=== PATIENT | male | born 1950 | race Caucasian/White ===

== ENCOUNTER 2017-10-31 16:00 | Outpatient (CLI) | payer MEDICARE, BC | END 2017-10-31 16:01 | disposition home or self-care (01) | LOC: BICRAD 16:00 | PROVIDERS: ATTEND Internal Medicine Gastroenterology | DX: K59.00 Constipation, unspecified (principal); K21.9 Gastro-esophageal reflux disease without esophagitis; R11.0 Nausea; M47.895 Other spondylosis, thoracolumbar region; Z96.643 Presence of artificial hip joint, bilateral | CPT/HCPCS: 74019 ==

== ENCOUNTER 2017-11-10 08:33 | Outpatient (CLI) | payer MEDICARE, BC ==
[2017-11-10] MEDS ORDERED: Iopamidol 370 76% 100 ML VIAL ONE (13:48)
== END 2017-11-10 08:34 | disposition home or self-care (01) ==
LOC: BICCT 08:33
PROVIDERS: ATTEND Physician Assistant Medical
DX: R11.0 Nausea (principal); K31.89 Other diseases of stomach and duodenum
CPT/HCPCS: 74177

== ENCOUNTER 2017-11-21 09:35 | Emergency (ER) | payer MEDICARE, BC ==
[2017-11-21] MEDS ORDERED: Ondansetron HCl/PF 4 MG/2 ML Vial ONE (09:44)
[2017-11-21 10:37] LABS: #Basophils 0.1 thou/uL (0.0-0.2); #Eosinphils 0.1 thou/uL (0.0-0.7); #Lymphocytes 1.3 thou/uL (1.20-3.40); #Monocytes 0.6 thou/uL (0.11-0.59); #Neutrophils 5.8 thou/uL (1.40-6.50); %Basophils 0.8 % (0.0-1.0); %Eosinophils 1.6 % (0.0-10.0); %Lymphocytes 16.1 % (21.0-51.0); %Monocytes 7.2 % (0.0-10.0); %Neutrophils 74.3 % (42.0-75.0); Hemoglobin 16.7 g/dL (14.0-18.0); Mean Corpuscular HGB CONC 33.9 g/dL (32.0-36.0); Mean Corpuscular Hemoglobin 33.3 pg (27.0-31.0); Mean Corpuscular Volume 98.2 fl (80.0-94.0); Mean Platelet Volume 6.5 fL (7.4-10.4); Platelet Count 312 thou/uL (130-400); Red Blood Cell (RBC) Count 5.02 mill/uL (4.70-6.10); White Blood Cell (WBC) Count 7.7 thou/uL (4.8-10.8)
[2017-11-21 11:01] LABS: ALT (SGPT) 31 U/L (8-55); AST (SGOT) 20 U/L (5-34); Albumin 4.6 g/dL (3.4-4.8); Alkaline Phosphatase 134 U/L (40-150); Anion Gap 15 mmol/L (10-20); BUN (Urea Nitrogen) 13 mg/dL (8.4-25.7); Bilirubin, Total 0.8 mg/dL (0.2-1.2); Calc. Creatinine Clearance 0 mL/min (70-130); Calcium 9.9 mg/dL (7.8-10.44); Carbon Dioxide 26 mmol/L (23-31); Chloride 94 mmol/L (98-107); Estimated GFR-MDRD Greater than 90; Globulin 3.2 g/dL (2.4-3.5); Glucose 239 mg/dL (80-115); Lipase 38 U/L (8-78); Potassium 3.9 mmol/L (3.5-5.1); Protein, Total 7.8 g/dL (5.8-8.1); Sodium 131 mmol/L (136-145)
[2017-11-21 11:02] LABS: INR-International Normal Ratio 1.1; Prothrombin Time 14.5 SEC (12.0-14.7)
[2017-11-21 11:04] LABS: D-Dimer Test 2.31 *mcg/mL (0.27-0.43); Troponin I Less than 0.010 ng/mL (< 0.028)
[2017-11-21 11:07] LABS: CKMB 7.3 ng/mL (0-6.6)
[2017-11-21] MEDS ORDERED: Nitroglycerin 0.4 MG TAB (25 Tab Bottle) ONE (11:07)
--- NOTE | 2017-11-21 11:21 | RAD ---
PORTABLE CHEST 1 VIEW: DATE: 11/21/17. TIME: 10:19 a.m. HISTORY: Chest pain. FINDINGS: Comparison is made to the exam of 02/25/12. The heart size is normal. The aorta is tortuous. The lungs are expanded without focal areas of cons olidation, pneumothorax, or pleural effusions. There are degenerative changes in the spine. IMPRESSION: No radiographic evidence of acute cardiopulmonary process. POS: [facility]
--- NOTE | 2017-11-21 11:45 | ULT ---
ULTRASOUND WITH DOPPLER DUPLEX VENOUS LOWER EXTREMITIES BILATERAL: HISTORY: A 67-year-old male with bilateral lower extremity pain and edema. TECHNIQUE: Color flow Doppler, spectral waveform analysis of pulsed Doppler, and yeung-scale imaging with alysia minerva and augmentation were used to evaluate the bilateral common femoral, femoral, popliteal, posteri or tibial, and superficial femoral veins, and the proximal portions of the profunda femoral and great er saphenous veins. FINDINGS: There is normal compressibility, demonstration of blood flow by color Doppler and pulsed Doppler, and response to augmentation, in all interrogated veins. IMPRESSION: Negative. No deep vein thrombosis in the bilateral lower extremities. jn[] POS: [facility]
[2017-11-21] MEDS ORDERED: Promethazine 25 MG TAB ONE ×2 (13:15→13:20)
[2017-11-21 13:58] LABS: CKMB 5.4 ng/mL (0-6.6); Troponin I Less than 0.010 ng/mL (< 0.028)
--- NOTE | 2017-11-21 14:04 | CT ---
CTA THORAX WITH CONTRAST: 11/21/2017 (Computed Tomographic Angiography, chest (noncoronary) with contrast material, and image post process ing) (PE protocol) HISTORY: A 67-year-old male with chest pain, dyspnea, and elevated D-dimer. TECHNIQUE: IV injection of iodinated contrast: Isovue-370 100 mL. Scan acquisition timing attempted to coincide with iodinated contrast bolus reaching maximal density in pulmonary arteries. 3D MIP reconstructions. FINDINGS: No thoracic aortic aneurysm or dissection. Heavy atherosclerotic calcification and possible stent in the LAD. Atherosclerotic calcification of the left main coronary artery. No cardiomegaly, pleural effusion, or pneumothorax. The lungs are bilaterally essentially clear. No bronchiectasis. Trachea and main bronchi are patent and clear. No destructive osseous lesion identified. No pulmonary thro mboembolism identified. IMPRESSION: 1. No pulmonary thromboembolism or any other acute findings. 2. Coronary atherosclerotic disease. leonela[] POS: [facility]
[2017-11-21] MEDS ORDERED: ISOVUE-370 76%-LOCM 1 ML ONE (15:11)
== END 2017-11-21 14:49 | disposition home or self-care (01) ==
LOC: ERS 09:35
DX: G47.00 Insomnia, unspecified (principal); E11.65 Type 2 diabetes mellitus with hyperglycemia; R11.0 Nausea
CPT/HCPCS: 36415; 71045; 71275; 80053; 82553; 83690; 84484; 85025; 85379; 85610; 85730; 93005; 93970; 96374; J2405

== ENCOUNTER 2017-12-01 12:29 | Outpatient (CLI) | payer MEDICARE, BC ==
[2017-12-01] MEDS ORDERED: Iopamidol 370 76% 100 ML VIAL ONE (14:30)
== END 2017-12-01 12:30 | disposition home or self-care (01) ==
LOC: BICCT 12:29
PROVIDERS: ATTEND Internal Medicine Gastroenterology
DX: R63.4 Abnormal weight loss; K21.9 Gastro-esophageal reflux disease without esophagitis; R93.3 Abnormal findings on diagnostic imaging of other parts of digestive tract; R11.0 Nausea
CPT/HCPCS: 70470

== ENCOUNTER 2018-08-03 10:01 | Day surgery (SDC) | payer MEDICARE, BC ==
[2018-08-02 11:55] VITALS: BMI 28.0
[2018-08-03] MEDS ORDERED: Gadobenate Dimeglumine 529 MG/1 ML (20ML VIAL) ONE (13:34)
--- NOTE | 2018-08-03 13:44 | RAD ---
LUMBAR SPINE INCLUDING FLEXION AND EXTENSION LATERAL STANDING VIEWS: HISTORY: A 68-year-old male for preoperative evaluation. FINDINGS: There is approximately 0.6 cm anterolisthesis of L5 on S1 with extensive multilevel disk-osteophytosi s and facet arthrosis. There is also S-shaped lumbar scoliosis convex to the left side superiorly an d convex to the right side in the caudal aspect of the lumbar spine. Bilateral total hip replacement changes. No significant abnormal translation between flexion and extension. IMPRESSION: Extensive spondylosis with some associated scoliosis. No significant abnormal translation between fl exion and extension. POS: [facility]
--- NOTE | 2018-08-03 15:06 | MRI ---
MRI CERVICAL SPINE NONCONTRAST: Date: 08/03/18 HISTORY: 68-year-old male with cervicalgia and bilateral upper extremity hypesthesia (numbness). COMPARISON: 12/30/16. FINDINGS: The hypopharynx and oropharynx are again demonstrated to be distended (perhaps the patient was intuba amador and the MRI was performed under anesthesiology service). There is a small amount of fluid posteri steven layering in the hypopharynx on the current MRI. Vertebral body heights are maintained. There is moderate disc space narrowing at C6-7, where there is a broad based disc-osteophytic bar complex which abuts and minimally indents the ventral surface of the spinal cord. Despite this, there is no significant central spinal canal stenosis at this level. T he rest of the spinal canal is generous in caliber throughout all other levels. Other than mild left- sided Modic Type I changes at C6-7, the bone marrow signal is normal. Other than 6-7, the interverteb ral disc spaces are preserved. There are moderate degenerative facet changes throughout most levels b ilaterally. The exceptions are normal or mild degenerative facet changes on the left at C5-6 and C6-7 . The left C3-4 facet joint is questionably ankylosed. There are uncinate process osteophytes encroaching upon neural foramina causing neural foraminal sten osis as follows: C2-3: Mild bilateral neural foraminal stenosis. C3-4: Mild to moderate bilateral neural foraminal stenosis. C4-5: Mild to moderate bilateral neural foraminal stenosis, right greater than left. C5-6: Mild to moderate bilateral neural foraminal stenosis. C6-7: Mild to moderate right neural foraminal stenosis. Severe left neural foraminal stenosis due to asymmetrically moderate size left uncinate process osteophytes. C7-T1: Mild right neural foraminal stenosis. No left neural foraminal stenosis. There is no significant interval change in the cervical spine compared to 12/30/16. IMPRESSION: 1. Moderate degenerative disc changes at C6-7. 2. Moderate facet osteoarthrosis bilaterally at almost all levels, except for relative sparing of le ft C5-6 and left C6-7. 3. No central spinal canal stenosis at any level. 4. Severe left neural foraminal stenosis at C6-7. 5. Multilevel mild-moderate neural foraminal stenosis bilaterally. 6. No interval change overall since 12/30/16. POS: [facility]
--- NOTE | 2018-08-03 16:21 | MRI ---
THORACIC SPINE MRI NONCONTRAST: 08/03/18 INDICATION: Dizziness, thoracic spinal stenosis, back pain, neck pain, and several month duration of extremity nu mbness. FINDINGS: The thoracic spine vertebral body heights are maintained. Alignment is maintained. There is multileve l marginal osteophyte formation most notable anteriorly. No evidence of acute marrow edema or disc sp krystian edema. An intrinsic T1 hyperintensity of the T8 vertebral body is consistent with an interosseo us hemangioma. There is no significant central canal or neural foraminal stenosis. No extrinsic mass effect of significant upon the thoracic spinal cord. The thoracic spinal cord reveals no focal intram edullary signal abnormality. There is incidental note of consolidation of each visualized posterior lung zone. IMPRESSION: 1. There is no significant central canal or neural foraminal stenosis of the thoracic spine. 2. Incidental note of bilateral areas of pulmonary parenchymal consolidation. Recommend followup with dedicated two view chest for further evaluation. POS: [facility]
--- NOTE | 2018-08-03 16:31 | MRI ---
MRI OF THE BRAIN WITH AND WITHOUT CONTRAST: 08/03/18 HISTORY: Dizziness. COMPARISON: None. TECHNIQUE: MRI of the brain is performed with and without intravenous gadolinium administration. Multisequential , multiplanar imaging is performed. FINDINGS: No hemorrhage on the axial gradient echo sequence. The calvarium has a normal T1 marrow signal intensity. Midline brain parenchymal structures are unrem arkable. No parenchymal mass, mass effect or midline shift. Brain volume is age appropriate. Cortical yeung-whi te matter differentiation is preserved. No evidence of hydrocephalus. Central arterial flow voids are maintained. Absent restricted diffusion . Minimal mucosal thickening of the paranasal sinuses. Partial opacification of the left mastoid air cells. No pathologic enhancement of the brain parenchyma. IMPRESSION: 1. No pathologic enhancement of the brain parenchyma. 2. Absent restricted diffusion. No acute infarct. 3. Partial opacification of the left mastoid air cells. POS: [facility]
--- NOTE | 2018-08-03 16:47 | MRI ---
MRI OF THE LUMBAR SPINE WITHOUT CONTRAST 08/03/18 COMPARISON: None. HISTORY: Back pain, extremity numbness, stenosis. TECHNIQUE: Multiplanar and multisequence MR imaging of the lumbar spine is provided without contrast. FINDINGS: There appears to be a unilateral L5 pars defect on the left. There is mild anterolisthesis of L5 on S1 measuring approximately 4 mm. The sagittal STIR imaging demonstrates no focal area of osseous ling ow edema. Assuming five lumbar type vertebral bodies, the conus medullaris terminates at T12-L1. T12-L1: Mild bilateral facet hypertrophy. Mild anterior osteophyte formation noted to the right of mi dline. No significant central canal or neural foraminal stenosis. L1-2: Disc space narrowing and disc desiccation and anterior osteophyte formation and small disc bulg e. No significant central canal stenosis. Mild bilateral facet hypertrophy. No significant neural for aminal stenosis on either side. L2-3: Mild bilateral facet hypertrophy. Disc space narrowing and disc desiccation. No significant julia tral canal or neural foraminal stenosis. L3-4: Mild bilateral facet hypertrophy. Minimal disc bulge and mild disc desiccation. Moderate left n eural foraminal stenosis. No significant central canal or right neural foraminal stenosis. L4-5: Disc space narrowing and disc desiccation. Bilateral facet hypertrophy, left greater than right . Mild bilateral neural foraminal stenosis, left greater than right. No central canal stenosis. L5-S1: Bilateral facet hypertrophy, right greater than left. Severe right and moderate left neural fo raminal stenosis. No significant central canal stenosis. The imaged retroperitoneal structures demonstrate no acute findings. IMPRESSION: Multilevel degenerative change within the lumbar spine as detailed above. Findings include unilateral L5 pars defect on the left and severe right neural foraminal stenosis at the L5-S1 level. POS: [facility]
--- NOTE | 2018-08-03 19:07 | EKG ---
Test Reason : PREOP Blood Pressure : / mmHG Vent. Rate : 056 BPM Atrial Rate : 056 BPM P-R Int : 208 ms QRS Dur : 092 ms QT Int : 410 ms P-R-T Axes : 022 010 053 degrees QTc Int : 395 ms Sinus bradycardia Otherwise normal ECG When compared with ECG of 21-NOV-2017 09:40, QT has shortened Confirmed by Kenya PACE ([id number]) on 08/03/2018 7:07:18 PM Referred By: TESS Confirmed By:Kenya PACE
[2018-08-06 07:59] LABS: Estimated GFR-MDRD - POC Greater than 90
== END 2018-08-03 16:45 | disposition home or self-care (01) ==
LOC: SDC/OP 10:01
PROVIDERS: ATTEND Neurological Surgery
DX: M50.323 Other cervical disc degeneration at C6-C7 level (principal); M48.02 Spinal stenosis, cervical region; M48.061 Spinal stenosis, lumbar region without neurogenic claudication; M43.17 Spondylolisthesis, lumbosacral region; M48.07 Spinal stenosis, lumbosacral region; I25.10 Atherosclerotic heart disease of native coronary artery without angina pectoris; I10 Essential (primary) hypertension; E78.5 Hyperlipidemia, unspecified; E11.9 Type 2 diabetes mellitus without complications; K21.9 Gastro-esophageal reflux disease without esophagitis; Z87.891 Personal history of nicotine dependence; Z79.82 Long term (current) use of aspirin; Z79.899 Other long term (current) drug therapy; Z88.1 Allergy status to other antibiotic agents; Z88.5 Allergy status to narcotic agent; Z95.1 Presence of aortocoronary bypass graft; Z95.5 Presence of coronary angioplasty implant and graft; Z96.643 Presence of artificial hip joint, bilateral; Z98.890 Other specified postprocedural states
CPT/HCPCS: 70553; 72120; 72141; 72146; 72148; 82565; 93005; 93010; A9579

== ENCOUNTER 2018-09-05 13:11 | Outpatient (CLI) | payer MEDICARE, BC ==
--- NOTE | 2018-09-05 15:18 | RAD ---
CHEST TWO VIEWS: History: Bilateral chest consolidation on prior thoracic spine MRI, 1218. FINDINGS/IMPRESSION: Heart size is normal. The lungs are clear. No confluent pneumonia, overt edema, or pleural effusion. The previously noted pulmonary parenchymal changes seen on prior thoracic spine MRI have resolved. No acute intrathoracic disease. POS: [facility]
== END 2018-09-05 13:12 | disposition home or self-care (01) ==
LOC: BICRAD 13:11
PROVIDERS: ATTEND Anesthesiology Pain Medicine
DX: J18.1 Lobar pneumonia, unspecified organism (principal)
CPT/HCPCS: 71046

== ENCOUNTER 2019-01-25 12:47 | Outpatient (CLI) | payer MEDICARE, BC ==
[~2019-01-25 12:47] MED LIST: ISOVUE-370 76%-LOCM 1 ML ONE
--- NOTE | 2019-01-25 14:12 | CT ---
Exam: POSTCONTRAST SOFT TISSUE NECK CT: HISTORY: Worsening dysphagia. Reflux. COMPARISON: None. FINDINGS: Visualized brain parenchyma is unremarkable Adequate aeration of visualized paranasal sinuses and mastoid air cells. No obvious masses in the oral cavity. Midline fatty raphe of the tongue is preserved. Patient is eduardo tulous. Epiglottis has a normal caliber. Preepiglottic fat is preserved. The supraglottic, glottic and subglo ttic larynx is unremarkable. Effacement of the left piriform sinus likely due to benign apposition of mucosa. Vocal cords are unremarkable. Symmetric attenuation of the parotid glands which are both fatty replaced. Symmetric attenuation of s ternocleidomastoid muscles. Possibly surgically absent or congenitally absent right submandibular gland. Left submandibular gland is unremarkable Atherosclerosis involving both proximal internal carotid arteries. Evaluation is limited by technique . No evidence of lymphadenopathy by size criteria. Upper mediastinum is unremarkable. Presumed chronic changes in the lung apices. Cervical spine vertebral body height is maintained. No fractures. Degenerative change at C6-C7. Proba ble bone island at T1. Varying degrees of foraminal stenosis and central canal stenosis due to degenerative change. Evaluation is limited. Visualized cervical and thoracic esophagus are patent. A small nonspecific air-fluid level is noted i n the proximal thoracic esophagus of uncertain significance. IMPRESSION: Patent aerodigestive tract. Nonspecific air-fluid level in the proximal thoracic esophagus. Further e valuation with endoscopy or esophagram if clinically warranted. Transcribed Date/Time: 01/25/2019 3:08 PM
== END 2019-01-25 12:48 | disposition home or self-care (01) ==
LOC: BICCT 12:47
PROVIDERS: ATTEND Physician Assistant Medical
DX: K21.9 Gastro-esophageal reflux disease without esophagitis (principal); R13.10 Dysphagia, unspecified; K59.00 Constipation, unspecified
CPT/HCPCS: 70491; 82565; Q9966

== ENCOUNTER 2019-03-08 08:55 | Outpatient (CLI) | payer MEDICARE, BC | END 2019-03-08 08:56 | disposition home or self-care (01) | PROVIDERS: ATTEND Physician Assistant Medical | DX: R13.10 Dysphagia, unspecified (principal); R63.3 Feeding difficulties; K21.9 Gastro-esophageal reflux disease without esophagitis | CPT/HCPCS: 74230 ==

== ENCOUNTER 2019-08-06 06:30 | Inpatient (IN) | payer MEDICARE, BC ==
[2019-08-06] MEDS ORDERED: Aspirin Chewable 81 MG TAB ONE (06:48)
[2019-08-06 07:08] LABS: #Monocytes 0.1 thou/uL (0.11-0.59); #Neutrophils 8.8 thou/uL (1.40-6.50); %Eosinophils 0.1 % (0.0-10.0); %Lymphocytes 9.9 % (21.0-51.0); %Monocytes 1.2 % (0.0-10.0); %Neutrophils 88.8 % (42.0-75.0); Hemoglobin 16.1 g/dL (14.0-18.0); Mean Corpuscular HGB CONC 34.6 g/dL (32.0-36.0); Mean Corpuscular Hemoglobin 33.8 pg (27.0-31.0); Mean Corpuscular Volume 97.5 fL (78.0-98.0); Mean Platelet Volume 7.4 fL (7.4-10.4); Platelet Count 237 thou/uL (130-400); RBC Distribution Width 11.6 % (11.5-14.5); Red Blood Cell (RBC) Count 4.78 mill/uL (4.70-6.10); White Blood Cell (WBC) Count 9.9 thou/uL (4.8-10.8)
[2019-08-06 07:12] LABS: ALT (SGPT) 51 U/L (8-55); AST (SGOT) 32 U/L (5-34); Albumin 4.4 g/dL (3.4-4.8); Alkaline Phosphatase 81 U/L (40-110); Anion Gap 16 mmol/L (10-20); BUN (Urea Nitrogen) 15 mg/dL (8.4-25.7); Bilirubin, Total 0.8 mg/dL (0.2-1.2); Calc. Creatinine Clearance 0 mL/min (70-130); Calcium 9.6 mg/dL (7.8-10.44); Carbon Dioxide 24 mmol/L (23-31); Chloride 101 mmol/L (98-107); Estimated GFR-MDRD Greater than 90; Globulin 3.2 g/dL (2.4-3.5); Glucose 259 mg/dL (80-115); Potassium 4.7 mmol/L (3.5-5.1); Protein, Total 7.6 g/dL (5.8-8.1); Sodium 136 mmol/L (136-145)
--- NOTE | 2019-08-06 07:37 | RAD ---
XR Chest 1 View Portable HISTORY: Chest pain COMPARISON: 09/05/2018 FINDINGS: The heart size is normal. The lungs are well expanded without focal areas of consolidation, pneumothorax or pleural effusions. IMPRESSION: No radiographic evidence of acute cardiopulmonary process.
[2019-08-06] MEDS ORDERED: Dextrose 50% Abboject 50 ML SYRINGE SLOW IVP PRN (07:57)
[2019-08-06] MEDS ORDERED: Dextrose 5% in Water 1,000 ML IV PRN (07:57)
[2019-08-06] MEDS ORDERED: Insulin Regular 300 UNITS/3 ML VIAL SC PRN ×2 (07:57)
[2019-08-06] MEDS ORDERED: Nitroglycerin 0.4 MG TAB (25 Tab Bottle) PO PRN (07:57)
[2019-08-06] MEDS ORDERED: Labetalol HCl 100 MG/20 ML VIAL SLOW IVP PRN (08:03)
[2019-08-06] MEDS ORDERED: Aspirin 325 MG TAB ONE (09:44)
[2019-08-06] MEDS: Aspirin 325 mg Enteric Coated Tablet PO SCH (09:45)
[2019-08-06] MEDS ORDERED: Enoxaparin Sodium 100 MG/ML SYRINGE SC SCH (10:30)
[2019-08-06] MEDS ORDERED: Acetaminophen 325 MG TAB PO PRN (10:48)
[2019-08-06] MEDS ORDERED: Ondansetron PF 4 MG/2 ML Vial IVP PRN (10:48)
[2019-08-06] MEDS ORDERED: Senokot S 8.6-50 MG TAB PO PRN (10:48)
[2019-08-06] MEDS ORDERED: Ondansetron ODT 4 MG TAB PO PRN (10:48)
[2019-08-06] MEDS ORDERED: Calcium Carbonate 500 MG ChewTAB PO PRN (10:48)
[2019-08-06 11:00] LABS: Cardiac Risk 5.1 (Less than 4.5)
[2019-08-06] MEDS ORDERED: Enoxaparin Sodium 100 MG/ML SYRINGE ONE ×2 (11:02→11:04)
--- NOTE | 2019-08-06 11:20 | HP ---
PRIMARY CARE: Dr. Ramirez. PRIMARY DOORS PREFITTER: Dr. Singh. CHIEF COMPLAINT: Chest discomfort. HISTORY OF PRESENT ILLNESS: The patient is a 69-year-old white male with coronary artery disease, status post LAD stent placement in 2011, presented to the hospital with chest discomfort. The chest discomfort has been on and off over the last week or so. It is pressure-like precordial radiating to the left arm. It is associated with lightheadedness and some nausea. He had similar pain yesterday while he was at physical therapy as well as this morning. He denies recent immobilization, travel, lower extremity edema, orthopnea, or paroxysmal nocturnal dyspnea. No palpitations or syncope reported. His pain was moderate in intensity that lasted for 10 to 15 minutes. He has nitroglycerin at home, however, did not take it. PAST MEDICAL HISTORY: 1. Coronary artery disease, status post LAD stent in 2011. He had 95% ulcerated plaque. 2. Diabetes mellitus type 2. 3. Chronic dizziness/vertigo, followed by Dr. Galicia. 4. Swallow dysfunction secondary to esophageal stricture, followed by Dr. Lindsey. 5. Former smoker. 6. Hyperlipidemia. 7. Diverticulosis. 8. GERD. 9. Hiatal hernia. PAST SURGICAL HISTORY: 1. Left knee surgery. 2. Bilateral hip surgery. 3. Cardiac catheterization with stent placement. 4. EGD. 5. Colonoscopy. 6. Left inguinal hernia repair. 7. Sinus surgery. 8. Left orchiectomy. ALLERGIES: THE PATIENT IS ALLERGIC TO QUINOLONES, HYDROCODONE, AND TRAMADOL. CURRENT HOME MEDICATIONS: 1. Sublingual nitroglycerin as needed. 2. Aspirin 81 mg daily. 3. Zyrtec 10 mg daily. 4. Nexium 20 mg daily. 5. Metformin 500 mg twice daily. 6. Multivitamin one tablet daily. 7. Pravastatin 10 mg at bedtime. SOCIAL HISTORY: The patient is a former smoker, quit in 1978. He currently lives at home with his , who is the decision maker. He is full code. No significant use of alcohol. He denies any drug use. REVIEW OF SYSTEMS: All other review of systems was reviewed and were found negative. FAMILY HISTORY: Positive for heart disease. PHYSICAL EXAMINATION: VITAL SIGNS: Temperature 97.8, respirations of 18, pulse rate of 80, blood pressure of 170/99 with O2 saturations 96% on room air. GENERAL: A 69-year-old male, in no apparent distress. Chest discomfort has resolved. HEENT: Head, atraumatic and normocephalic. Sclerae are anicteric. Moist mucous membranes. No oral lesion. NECK: Supple. No JVD appreciated. No carotid bruit. LUNGS: Clear to auscultation bilaterally. No wheezing, rales, or rhonchi. HEART: S1 and S2 present. Regular rate and rhythm. No rubs or gallops. No reproducible chest wall tenderness. ABDOMEN: Soft, nontender. Bowel sounds are present. No rebound or guarding. No costovertebral angle tenderness. EXTREMITIES: No edema or calf tenderness. NEUROLOGIC: Grossly nonfocal. Moves all 4 extremities. PSYCHIATRY: Alert, awake, and oriented x3. SKIN: Warm and dry. LYMPH NODES: No palpable lymph nodes in the neck. PERIPHERAL VASCULAR: Radial pulses palpable bilaterally. MUSCULOSKELETAL: No joint swelling or tenderness. SKIN: Warm and dry. PSYCHIATRY: Alert, awake, and oriented x3. DIAGNOSTIC STUDIES: EKG by my review showed sinus rhythm with left axis deviation and nonspecific ST-T wave changes in the inferior leads. LABORATORY DATA: Chemistry showed sodium 136, potassium 4.7, chloride 101, bicarb 24, BUN 15, and creatinine 0.77. LFTs in normal range. Troponin x1 was negative. WBC 9.9 with hemoglobin 16.1, hematocrit 46.6, platelet of 237. IMAGING STUDIES: Chest x-ray by my review was negative for infiltrate or edema. IMPRESSION: 1. Chest discomfort consistent with unstable angina. 2. Coronary artery disease, status post left anterior descending stent placement in 2011. 3. Hyperlipidemia. 4. Abnormal EKG. 5. Chronic kidney disease, stage 2. 6. Gastroesophageal reflux disease. 7. Chronic dizziness/vertigo. 8. Diverticulosis. 9. Diabetes mellitus type 2. 10. Degenerative joint disease. 11. Former smoker. 12. Family history of heart disease. PLAN: The patient will be monitored in the telemetry unit as observation. I discussed the case with Dr. Singh in detail. Dr. Singh recommended 1 mg/kg of Lovenox one dose for now. We will change pravastatin to Lipitor 40 mg at bedtime. We will increase aspirin to 325 mg daily for now. We will place a nitroglycerin patch. Echocardiogram will be obtained. Dr. Singh's planning for cardiac catheterization tomorrow. We will start him on mild sliding scale. We will hold metformin for now. We will continue PPIs. We will check fasting lipid profile. We will keep him n.p.o. past midnight. Plan of care was discussed with the patient in detail. He stated understanding. Job ID: [id number]
[2019-08-06] MEDS ORDERED: Nitroglycerin 2% Ointment 1 INCH/1 GM Packet ONE (14:19)
[2019-08-06] MEDS ORDERED: Nitroglycerin 50 MG/250 ML BOT 0 ML ONE (14:19)
[2019-08-06] MEDS ORDERED: Acetaminophen 325 MG TAB ONE (14:27)
[2019-08-06 18:01] VITALS: BMI 27.8
[2019-08-06] MEDS: Nitroglycerin 2% Ointment 1 INCH/1 GM Packet TOP SCH ×2 (18:23→20:54)
[2019-08-06] MEDS ORDERED: Communication Order-Pharmacy FS SCH (19:00)
--- NOTE | 2019-08-06 19:22 | CON ---
DATE OF CONSULTATION: 08/06/2019 REASON FOR CONSULTATION: Unstable angina. HISTORY OF PRESENT ILLNESS: Mr. Meliton Singh is a 69-year-old gentleman, with previous history of coronary stent implantation. The patient has noticed several episodes of chest pressure recently. He had an episode recently of chest pressure with low to medium level exertion and pressure going across his chest. It resolved extremely slowly when he stopped. Subsequently, he tried gain to exercise with some supervision and had the same episode of pressure with low level of activity. This morning, he developed chest pressure at rest and finally came here to the emergency room. PAST MEDICAL HISTORY: History of stent implantation in 2011 with 3.0 x 28 mm drug-eluting stent was positioned and deployed, and then postdilated to 3.5 mm. The patient otherwise has been plagued by loss of muscle function and progressive weakness. He was on statins. He was eventually taken off statins due to muscle weakness, but it did not improve off statins. The patient also had difficulty swallowing. He has had problem with his esophagus. MEDICATION: At home included: 1. Aspirin. 2. Pravastatin 10 mg a day. 3. Metformin. SOCIAL HISTORY: No alcohol or tobacco. FAMILY HISTORY: Negative for heart disease at a young age. PHYSICAL EXAMINATION: GENERAL: This is a pleasant gentleman, in no distress. VITAL SIGNS: Blood pressure had been variable, but most recently 164/73; pulse 66 and regular. LUNGS: Clear.; CARDIAC: Normal S1, normal S2. ABDOMEN: Soft and nontender. EXTREMITIES: Warm, dry. No clubbing. No cyanosis. There is no edema. DIAGNOSTIC DATA: EKG did not show any ischemic changes. Troponin levels, there was one of 0.018, the others were normal. ASSESSMENT: 1. Unstable angina pectoris. 2. Previous stent implantation. 3. Catheterization in 2016 showing no obstructive stenosis in the coronaries. 4. He has had recurrent episodes of chest pressure including with low-level activity and finally at rest compatible with unstable angina. PLAN: Proceed to cardiac catheterization tomorrow. Discussed risk of stroke, heart attack, iodine allergy, loss of blood supply to leg or kidney, stent thrombosis, stent restenosis. He understands and wished to proceed. Job ID: [id number]
[2019-08-06] MEDS: Atorvastatin Calcium 40 MG TAB PO SCH (20:54)
[2019-08-06] MEDS ORDERED: Non-Formulary Item 1 EACH (Esomeprazole Magnesium [Nexium] 20 MG) PO SCH (21:00)
[2019-08-07] MEDS: Nitroglycerin 2% Ointment 1 INCH/1 GM Packet TOP SCH ×3 (05:13→21:16)
[2019-08-07] MEDS: Sodium Chloride 0.9% 1,000 ML IV SCH ×2 (05:14→15:44)
[2019-08-07] MEDS: Aspirin 325 mg Enteric Coated Tablet PO SCH (05:14)
[2019-08-07] MEDS ORDERED: Diazepam 5 MG TAB PO SCH (06:00)
[2019-08-07] MEDS ORDERED: Heparin (Artline) 1,000 ML ONE (06:43)
[2019-08-07] MEDS ORDERED: Lidocaine 1% (PF) 30 ML VIAL ONE (06:43)
[2019-08-07] MEDS ORDERED: Fentanyl 100 MCG/2 ML VIAL ONE (07:25)
[2019-08-07] MEDS ORDERED: Midazolam HCl 2 mg/2 ml Vial ONE (07:25)
[2019-08-07] MEDS ORDERED: Heparin 10,000 UNITS/1 ML VIAL ONE (07:36)
[2019-08-07] MEDS ORDERED: Nitroglycerin 100MG/250ML BOT 250 ML ONE (07:36)
[2019-08-07] MEDS ORDERED: Acetaminophen/Codeine 30-300mg Tablet PO PRN ×2 (08:17)
[2019-08-07] MEDS ORDERED: Sodium Chloride 0.9% 200 ML IV PRN (08:17)
[2019-08-07] MEDS ORDERED: Nitroglycerin 0.4 MG TAB (25 Tab Bottle) SL PRN (08:17)
[2019-08-07] MEDS ORDERED: Iopamidol 370 76% 100 ML VIAL ONE (10:54)
[2019-08-07] MEDS ORDERED: Communication Order-Pharmacy FS SCH (16:12)
[2019-08-07 16:58] LABS: Hemoglobin A1c 7.4 % (4.0-6.0)
[2019-08-07 17:21] LABS: PTT 24.1 SEC (22.9-36.1)
[2019-08-07 17:22] LABS: INR-International Normal Ratio 1.2; Prothrombin Time 14.9 SEC (12.0-14.7)
--- NOTE | 2019-08-07 19:26 | PDOC.HOSPP ---
- Subjective Encounter Date: 08/07/19 Encounter Time: 13:00 Subjective: Patient seen and examined for CP. s/p Cath. No CP. No new complaints. No overnight events - Objective Vital Signs & Weight: Vital Signs (12 hours) Temp Pulse Resp BP Pulse Ox 08/07/19 15:20 97.9 F 60 14 147/74 H 100 08/07/19 11:47 97.4 F L 61 16 143/69 H 100 Weight Weight 228 lb 14.4 oz I&O: 08/06/19 08/07/19 08/08/19 06:59 06:59 06:59 Intake Total 600 Output Total 725 Balance -125 Result Diagrams: 08/06/19 06:40 08/06/19 06:40 Additional Labs: Accuchecks 08/07/19 08/07/19 08/07/19 17:01 10:26 05:15 POC Glucose 161 H 130 H 183 H 08/06/19 22:08 POC Glucose 258 H Laboratory Tests 08/07/19 16:22 Hemoglobin A1c 7.4 H EKG Reviewed by me: Yes (Tele SR) Hospitalist ROS - Review of Systems Respiratory: denies: cough, dry, shortness of breath, hemoptysis, SOB with excertion, pleuritic pain, sputum, wheezing, other Cardiovascular: denies: chest pain, palpitations, orthopnea, paroxysmal noc. dyspnea, edema, light headedness, other - Medication Medications: Active Medications Generic Name Dose Route Start Last Admin Trade Name Freq PRN Reason Stop Dose Admin Acetaminophen 650 mg 08/06/19 10:48 08/07/19 11:33 Tylenol PO 650 mg Q4H PRN Administration Headache/Fever/Mild Pain (1-3) Aspirin 325 mg 08/06/19 09:00 08/07/19 05:14 Ecotrin PO 325 mg DAILY CHIRAG Administration Atorvastatin Calcium 40 mg 08/06/19 21:00 08/06/19 20:54 Lipitor PO 40 mg HS CHIRAG Administration Sodium Chloride 1,000 mls @ 100 mls/hr 08/07/19 06:00 08/07/19 15:44 Normal Saline 0.9% IV 1,000 mls .Q10H CHIRAG Administration Nitroglycerin 0.5 inch 08/06/19 14:00 08/07/19 15:44 Nitro-Bid 2% Ointment TOP 0.5 inch Q8HR CHIRAG Administration Senna/Docusate Sodium 2 tab 08/06/19 10:48 08/07/19 11:34 Senokot S PO 2 tab BIDPRN PRN Administration Constipation - Exam General Appearance: NAD Heart: RRR, no gallops Respiratory: CTAB, no rales Gastrointestinal: soft, non-tender, normal bowel sounds Extremities: no edema Hosp A/P - Plan DVT proph w/SCDs 1. Chest discomfort consistent with unstable angina. 2. CAD s/p LAD stent placement in 2011. 3. Hyperlipidemia. 4. Abnormal EKG. 5. Chronic kidney disease, stage 2. 6. Gastroesophageal reflux disease. 7. Chronic dizziness/vertigo. 8. Diverticulosis. 9. Diabetes mellitus type 2. 10. Degenerative joint disease. 11. Former smoker. 12. Family history of heart disease. PLAN: Cont ASA/Statins Await CV input Cont other meds as above
[2019-08-07] MEDS: Atorvastatin Calcium 40 MG TAB PO SCH (21:16)
[2019-08-07] MEDS ORDERED: CEFAZOLIN 2 GM in Premix Bag 1 BAG IVPB SCH (22:00)
--- NOTE | 2019-08-08 00:12 | CON ---
DATE OF CONSULTATION: HISTORY OF PRESENT ILLNESS: A 69-year-old gentleman, status post LAD stenting about 5 years ago, who has been intolerant of statins. He in fact has had so much muscle wasting that he is beginning to have balance issues and is pending a neurology evaluation having been diagnosed with neuropathy a number of years ago. He has presented with increasing frequency of chest discomfort and cardiac catheterization today showed a 50% left main, 90% OM-1, 60% to 70% mid LAD, 90% apical LAD, and a serial 50% lesions of the right coronary artery. His left ventricular systolic function is normal by cath and echo. His cardiovascular risk factors include diabetes mellitus with an A1c pending. He is on metformin, which was recently started. He had previously taken drugs, but had significant weight loss and did not need diabetic drugs for short time. He has hyperlipidemia and as mentioned, has been statin intolerant. He has not smoked since 1978, when his father had a myocardial infarction. He has reflux by history as well as diverticulosis. PAST SURGICAL HISTORY: Bilateral hip replacements as well as a left knee replacement. He has had an inguinal hernia repair as well as sinus surgery and an orchiectomy. ALLERGIES: TO QUINOLONES, HYDROCODONE, AND TRAMADOL. MEDICATIONS: At home; 1. Aspirin. 2. Zyrtec. 3. Nexium. 4. Metformin 500 b.i.d. 5. Pravastatin 10 at bedtime. SOCIAL HISTORY: He is . 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 PHYSICAL EXAMINATION: GENERAL: He is alert and cooperative gentleman. VITAL SIGNS: Height 6 feet 4, weight 228 pounds. NECK: No carotid bruits. LUNGS: Clear to auscultation. CARDIAC: Regular rate and rhythm. No murmurs. ABDOMEN: Soft, nontender. Mildly obese. Unable to palpate his aorta. EXTREMITIES: He has palpable femoral and posterior tibial pulses bilaterally as well as left radial pulse. Unfortunately, he has an abnormal Harry test in his nondominant left arm. He has no peripheral edema. PLAN: Coronary bypass grafting to the LAD, OM, PDA, and possibly distal circ if large enough. Informed consent has been obtained. Job ID: [id number]
[2019-08-08] MEDS: Sodium Chloride 0.9% 1,000 ML IV SCH (02:05)
[2019-08-08] MEDS: Nitroglycerin 2% Ointment 1 INCH/1 GM Packet TOP SCH (05:15)
[2019-08-08] MEDS ORDERED: Midazolam HCl 2 mg/2 ml Vial ONE (06:36)
[2019-08-08] MEDS ORDERED: Midazolam HCl 5 mg/5 ml Vial ONE (06:36)
[2019-08-08] MEDS ORDERED: Fentanyl 100 MCG/2 ML VIAL ONE (06:36)
[2019-08-08] MEDS ORDERED: Dexmedetomidine 200 MCG/2 ML VIAL ONE (06:36)
[2019-08-08] MEDS ORDERED: Vecuronium 10 MG VIAL ONE ×2 (06:36→13:12)
[2019-08-08] MEDS ORDERED: Albumin 5% 500 ML ONE (06:39)
[2019-08-08] MEDS ORDERED: Heparin 10,000 UNITS/1 ML VIAL 30,000 UNITS in Sodium Chloride 0.9% 1,000 ML FS SCH (07:15)
[2019-08-08] MEDS ORDERED: Insulin Regular 300 UNITS/3 ML VIAL ONE (10:59)
[2019-08-08] MEDS ORDERED: Ondansetron PF 4 MG/2 ML Vial ONE (13:12)
[2019-08-08] MEDS ORDERED: Papaverine 60 MG/2 ML VIAL ONE (13:12)
[2019-08-08] MEDS ORDERED: ePHEDrine/0.9% NaCl/PF SYRINGE 50 mg/10 ml ONE (13:12)
[2019-08-08] MEDS ORDERED: Magnesium Sulfate 1 GM/2 ML VIAL ONE (13:12)
[2019-08-08] MEDS ORDERED: Nitroglycerin 50 MG/250 ML BOT ONE (13:12)
[2019-08-08] MEDS ORDERED: Lidocaine 1% PF 5 ML VIAL ONE ×2 (13:12)
[2019-08-08] MEDS ORDERED: Thrombin 5000 UNITS/5 ML VIAL ONE (13:12)
[2019-08-08] MEDS ORDERED: Dexamethasone 20 MG/5 ML VIAL ONE (13:12)
[2019-08-08] MEDS ORDERED: Ketorolac Tromethamine 30 MG/ML VIAL ONE (13:12)
[2019-08-08] MEDS ORDERED: Cardioplegic Soln 1,000 ML BAG ONE (13:12)
[2019-08-08] MEDS ORDERED: Aminocaproic Acid 5 GM/20 ML VIAL ONE (13:12)
[2019-08-08] MEDS ORDERED: Lidocaine 2% PF 5 ML VIAL ONE (13:12)
[2019-08-08] MEDS ORDERED: Heparin 5,000 UNITS/ML VIAL ONE (13:12)
[2019-08-08] MEDS ORDERED: Glycopyrrolate 0.2 MG/ML 5 ML SYRINGE ONE (13:12)
[2019-08-08] MEDS ORDERED: PHENYLEPHRINE-NS 100 MCG/ML 10 ML SYRINGE ONE (13:12)
[2019-08-08] MEDS ORDERED: Heparin 30,000 units/30 ml VIAL ONE (13:12)
[2019-08-08] MEDS ORDERED: Protamine Sulfate 250 MG/25 ML VIAL ONE (13:12)
[2019-08-08] MEDS ORDERED: Potassium Chloride 60 MEQ/30 ML VIAL ONE (13:12)
[2019-08-08] MEDS ORDERED: Sodium Bicarb 50 MEQ/50 ML Abboject 8.4% SYRINGE ONE (13:12)
[2019-08-08] MEDS ORDERED: Calcium Chloride 1 GM/10 ML Abboject SYRINGE ONE (13:12)
[2019-08-08] MEDS ORDERED: Guaifenesin DM 100-10/5 ML UDCUP PO PRN (13:59)
[2019-08-08] MEDS ORDERED: Bisacodyl 10 MG SUPP PR PRN (13:59)
[2019-08-08] MEDS ORDERED: Morphine 2 MG/ML SYRINGE SLOW IVP PRN (13:59)
[2019-08-08] MEDS ORDERED: Mag-Al 1200 mg/1200 mg/30 ML UDCUP PO PRN (13:59)
[2019-08-08] MEDS ORDERED: Hetastarch 6% 500 ML 500 ML IVPB PRN (13:59)
[2019-08-08] MEDS ORDERED: Post-Op Insulin Drip Protocol IVPB ONE (13:59)
[2019-08-08] MEDS ORDERED: niCARdipine 25 MG in Sodium Chloride 0.9% 250 ML 240 ML IVPB PRN (13:59)
[2019-08-08] MEDS ORDERED: Promethazine HCl 25 MG/ML VIAL IM PRN (13:59)
[2019-08-08] MEDS ORDERED: hydrALAZINE 20 MG/ML VIAL SLOW IVP PRN (13:59)
[2019-08-08] MEDS ORDERED: Norepinephrine 8 MG/0.9% NS 250 ML IVPB PRN (13:59)
[2019-08-08] MEDS ORDERED: DOPamine 400 MG/D5W 250 ML 250 ML IVPB PRN (13:59)
[2019-08-08] MEDS ORDERED: Bisacodyl 5 MG TAB PO PRN (13:59)
[2019-08-08] MEDS ORDERED: traMADol HCl 50 MG TAB PO PRN (13:59)
[2019-08-08] MEDS ORDERED: Nitroglycerin 50 MG/250 ML BOT 250 ML IVPB PRN (13:59)
[2019-08-08] MEDS ORDERED: Acetaminophen 325 MG TAB PO PRN (13:59)
[2019-08-08] MEDS ORDERED: Ibuprofen 800 MG TAB PO SCH (14:00)
[2019-08-08 14:06] LABS: #Eosinphils 0.1 thou/uL (0.0-0.7); #Lymphocytes 1.1 thou/uL (1.20-3.40); #Monocytes 0.7 thou/uL (0.11-0.59); #Neutrophils 9.4 thou/uL (1.40-6.50); %Eosinophils 0.7 % (0.0-10.0); %Lymphocytes 9.6 % (21.0-51.0); %Monocytes 6.4 % (0.0-10.0); %Neutrophils 83.3 % (42.0-75.0); Hemoglobin 13.3 g/dL (14.0-18.0); Mean Corpuscular HGB CONC 35.1 g/dL (32.0-36.0); Mean Corpuscular Hemoglobin 34.3 pg (27.0-31.0); Mean Corpuscular Volume 97.8 fL (78.0-98.0); Mean Platelet Volume 7.1 fL (7.4-10.4); Platelet Count 166 thou/uL (130-400); RBC Distribution Width 11.7 % (11.5-14.5); Red Blood Cell (RBC) Count 3.87 mill/uL (4.70-6.10); White Blood Cell (WBC) Count 11.3 thou/uL (4.8-10.8)
[2019-08-08 14:08] LABS: PTT 27.2 SEC (22.9-36.1)
[2019-08-08 14:09] LABS: INR-International Normal Ratio 1.4; Prothrombin Time 16.9 SEC (12.0-14.7)
[2019-08-08 14:15] LABS: Anion Gap 11 mmol/L (10-20); BUN (Urea Nitrogen) 11 mg/dL (8.4-25.7); Calc. Creatinine Clearance 165 mL/min (70-130); Calcium 7.5 mg/dL (7.8-10.44); Carbon Dioxide 23 mmol/L (23-31); Chloride 109 mmol/L (98-107); Estimated GFR-MDRD Greater than 90; Glucose 133 mg/dL (80-115); Potassium 3.5 mmol/L (3.5-5.1); Sodium 139 mmol/L (136-145)
--- NOTE | 2019-08-08 14:23 | RAD ---
PORTABLE CHEST ONE VIEW: 08/08/2019 1:31 p.m. HISTORY: Post open heart surgery. COMPARISON: Exam from 08/06/2019. FINDINGS: Interval changes of median sternotomy are seen. There is a right subclavian central line with the tip in the projection of the cavoatrial junction. Mediastinal drain is present. Heart size is stable. No lobar consolidation, pneumothoraces, cecil pulmonary edema or large effusions are seen. POS: ANIA
[2019-08-08] MEDS ORDERED: HUMULIN R 100 UNITS in Sodium Chloride 0.9% 100 ML IVPB SCH (14:26)
[2019-08-08] MEDS ORDERED: Dextrose 5% in Water 1,000 ML IV PRN (14:26)
[2019-08-08] MEDS ORDERED: Insulin Regular 300 UNITS/3 ML VIAL SC PRN (14:26)
[2019-08-08] MEDS ORDERED: Dextrose 50% Abboject 50 ML SYRINGE SLOW IVP PRN (14:26)
[2019-08-08] MEDS ORDERED: Magnesium 2 GM/50 ML 2 GM in Premix Bag 1 BAG IVPB SCH (14:30)
[2019-08-08] MEDS: CEFAZOLIN 2 GM in Premix Bag 1 BAG IVPB SCH ×2 (14:31→22:33)
[2019-08-08] MEDS: Lactated Ringer's 1,000 ML IV SCH (14:32)
[2019-08-08] MEDS: Fentanyl 100 MCG/2 ML VIAL SLOW IVP PRN ×4 (14:38→20:42)
[2019-08-08] MEDS: Potassium Chloride 20 MEQ/100 ML PREMIX BAG IVPB PRN (15:26)
[2019-08-08] MEDS: Ondansetron PF 4 MG/2 ML Vial IVP PRN (15:44)
[2019-08-08] MEDS ORDERED: Acetaminophen 1,000 MG in Premix Bag 1 BAG IVPB PRN (16:39)
[2019-08-08] MEDS: Ketorolac Tromethamine 30 MG/ML VIAL IVP SCH ×2 (18:47→23:38)
[2019-08-08] MEDS: Famotidine/PF 20 mg/2ml Vial SLOW IVP SCH (20:02)
[2019-08-08] MEDS: Pravastatin Sodium 20 MG TAB PO SCH (20:02)
[2019-08-08 20:10] LABS: Hemoglobin 12.9 g/dL (14.0-18.0)
[2019-08-08 20:23] LABS: Potassium 4.1 mmol/L (3.5-5.1)
--- NOTE | 2019-08-08 22:26 | PDOC.HOSPP ---
- Subjective Encounter Date: 08/08/19 Encounter Time: 15:00 Subjective: Patient seen and examined for CAD. s/p CABG. Extubated. No new complaints. No overnight events - Objective Vital Signs & Weight: Vital Signs (12 hours) Temp Pulse Ox 08/08/19 20:00 98.0 F 08/08/19 14:00 97 Weight Weight 228 lb 14.4 oz Most Recent Monitor Data Heart Rate from ECG 75 NIBP 111/69 NIBP BP-Mean 83 Respiration from ECG 15 SpO2 97 I&O: 08/07/19 08/08/19 08/09/19 06:59 06:59 06:59 Intake Total 600 794.1 Output Total 725 1150 1895 Balance -125 -1150 -1100.9 Result Diagrams: 08/08/19 19:55 08/08/19 19:55 Additional Labs: Accuchecks 08/08/19 08/08/19 08/08/19 21:57 20:53 20:01 POC Glucose 116 H 108 126 H 08/08/19 08/08/19 08/08/19 19:12 18:16 17:13 POC Glucose 107 117 H 139 H 08/08/19 08/08/19 08/08/19 16:03 15:03 13:48 POC Glucose 164 H 168 H 125 H 08/08/19 08/08/19 08/08/19 13:24 12:11 11:38 POC Glucose 143 H 167 H 173 H 08/08/19 08/08/19 08/08/19 10:52 08:59 03:59 POC Glucose 200 H 124 H 133 H EKG Reviewed by me: Yes (Tele SR) Hospitalist ROS - Review of Systems Cardiovascular: denies: chest pain, palpitations, orthopnea, paroxysmal noc. dyspnea, edema, light headedness, other Gastrointestinal: denies: nausea, vomiting, abdominal pain, diarrhea, constipation, melena, hematochezia, other - Medication Medications: Active Medications Generic Name Dose Route Start Last Admin Trade Name Freq PRN Reason Stop Dose Admin Albumin Human 25 gm 08/08/19 13:59 08/08/19 16:56 Albumin 5% IVPB 08/09/19 14:00 25 gm Q6H PRN Administration To Maintain SBP > 90 mmHG Famotidine 20 mg 08/08/19 21:00 08/08/19 20:02 Pepcid SLOW IVP 20 mg Q12HR CHIRAG Administration Fentanyl 50 mcg 08/08/19 13:59 08/08/19 20:42 Sublimaze SLOW IVP 08/10/19 13:22 50 mcg Q2H PRN Administration Severe Pain (7-10) Cefazolin Sodium/Dextrose 2 gm 50 mls @ 100 mls/hr 08/08/19 15:00 08/08/19 14 :31 / Device IVPB 08/09/19 07:29 50 mls 0700,1500,2300 CHIRAG Administration Lactated Ringer's 1,000 mls @ 75 mls/hr 08/08/19 13:59 08/08/19 14:32 Lactated Ringer's IV 1,000 mls .[id number] CHIRAG Administration Insulin Human Regular 100 101 mls @ 0 mls/hr 08/08/19 14:26 08/08/19 15:25 units/ Sodium Chloride IVPB 101 mls INF CHIRAG Administration Protocol As Directed Acetaminophen 1,000 mg/ Device 100 mls @ 400 mls/hr 08/08/19 16:39 08/08/19 18:21 IVPB 08/09/19 16:40 100 mls Q6H PRN Administration Fever/Mild Pain Ketorolac Tromethamine 15 mg 08/08/19 18:00 08/08/19 18:47 Toradol IVP 08/10/19 18:01 15 mg Q6HR CHIRAG Administration Ondansetron HCl 4 mg 08/08/19 13:59 08/08/19 15:44 Zofran IVP 4 mg Q6H PRN Administration Nausea/Vomiting Potassium Chloride 20 meq 08/08/19 13:59 08/08/19 15:26 Kcl IVPB 20 meq PRN PRN Administration K level </= 4.0 Pravastatin Sodium 10 mg 08/08/19 21:00 08/08/19 20:02 Pravachol PO 10 mg HS CHIRAG Administration Promethazine HCl 6.25 mg 08/08/19 13:59 08/08/19 20:03 Phenergan IM 6.25 mg Q4H PRN Administration Nausea/Vomiting - Exam General Appearance: NAD Heart: RRR, no gallops Respiratory: CTAB, no rales Respiratory - other findings: chest tube + Gastrointestinal: soft, non-distended, normal bowel sounds Extremities: no edema Hosp A/P - Plan DVT proph w/SCDs 1. CP/Unstable angina 2. CAD s/p LAD stent placement in 2011. 3. Hyperlipidemia. 4. s/p CABG 08/08 5. Chronic kidney disease, stage 2. 6. Gastroesophageal reflux disease. 7. Chronic dizziness/vertigo. 8. Diverticulosis. 9. Diabetes mellitus type 2. 10. Degenerative joint disease. 11. Former smoker. 12. Family history of heart disease. PLAN: 08/08 s/p CABG Cont ASA/Statins On Insulin drip Cont other meds AM labs
[2019-08-09] MEDS: Fentanyl 100 MCG/2 ML VIAL SLOW IVP PRN ×7 (01:10→21:20)
[2019-08-09] MEDS: Lactated Ringer's 1,000 ML IV SCH (02:54)
[2019-08-09] MEDS: Ondansetron PF 4 MG/2 ML Vial IVP PRN (02:54)
[2019-08-09 03:19] LABS: #Lymphocytes 1.3 thou/uL (1.20-3.40); #Neutrophils 7.8 thou/uL (1.40-6.50); %Eosinophils 0.2 % (0.0-10.0); %Lymphocytes 12.6 % (21.0-51.0); %Monocytes 10.1 % (0.0-10.0); %Neutrophils 77.1 % (42.0-75.0); Hemoglobin 12.9 g/dL (14.0-18.0); Mean Corpuscular HGB CONC 35.2 g/dL (32.0-36.0); Mean Corpuscular Hemoglobin 34.4 pg (27.0-31.0); Mean Corpuscular Volume 97.5 fL (78.0-98.0); Mean Platelet Volume 6.8 fL (7.4-10.4); Platelet Count 188 thou/uL (130-400); RBC Distribution Width 11.7 % (11.5-14.5); Red Blood Cell (RBC) Count 3.76 mill/uL (4.70-6.10); White Blood Cell (WBC) Count 10.1 thou/uL (4.8-10.8)
[2019-08-09 03:46] LABS: Anion Gap 10 mmol/L (10-20); BUN (Urea Nitrogen) 11 mg/dL (8.4-25.7); Calc. Creatinine Clearance 171 mL/min (70-130); Calcium 7.8 mg/dL (7.8-10.44); Carbon Dioxide 25 mmol/L (23-31); Chloride 104 mmol/L (98-107); Estimated GFR-MDRD Greater than 90; Glucose 120 mg/dL (80-115); Potassium 3.8 mmol/L (3.5-5.1); Sodium 135 mmol/L (136-145)
[2019-08-09] MEDS: Potassium Chloride 20 MEQ/100 ML PREMIX BAG IVPB PRN (04:10)
[2019-08-09] MEDS: Ketorolac Tromethamine 30 MG/ML VIAL IVP SCH ×4 (05:43→23:31)
[2019-08-09] MEDS: CEFAZOLIN 2 GM in Premix Bag 1 BAG IVPB SCH (06:02)
--- NOTE | 2019-08-09 08:20 | RAD ---
PORTABLE CHEST 1 VIEW: DATE: 08/09/2019. TIME: 4:19 a.m. HISTORY: Post open heart surgery. FINDINGS/IMPRESSION: Comparison is made with the exam of the previous day. No significant interval change is seen. POS: GURDEEP
--- NOTE | 2019-08-09 08:51 | PRG ---
DATE OF SERVICE: 08/09/2019 SUBJECTIVE: Mr. Singh is doing well. He has been up in the chair earlier. He is sitting up in the bed now. No unusual chest pain. OBJECTIVE: VITAL SIGNS: Blood pressure is 140 systolic, pulse is 74. LUNGS: Clear. CARDIAC: Normal S1, normal S2. ASSESSMENT: 1. Status post coronary artery bypass grafting. 2. Diabetes. 3. History of statin intolerance. PLAN: 1. Beta-blockers. 2. Aspirin. 3. Tolerating low-dose statin at the present time. Job ID: [id number]
[2019-08-09] MEDS ORDERED: Aspirin 325 MG TAB PO SCH (09:00)
[2019-08-09] MEDS: Famotidine/PF 20 mg/2ml Vial SLOW IVP SCH (09:19)
[2019-08-09] MEDS: Polyethylene Glycol 3350 17 GM Packet PO SCH (09:20)
[2019-08-09] MEDS ORDERED: Guaifenesin DM 100-10/5 ML UDCUP PO PRN (12:22)
[2019-08-09] MEDS ORDERED: Nitroglycerin 0.4 MG TAB (25 Tab Bottle) SL PRN (12:22)
[2019-08-09] MEDS ORDERED: Promethazine HCl 25 MG/ML VIAL SLOW IVP PRN (12:22)
[2019-08-09] MEDS ORDERED: Mag-Al 1200 mg/1200 mg/30 ML UDCUP PO PRN (12:22)
[2019-08-09] MEDS ORDERED: Mineral Oil ENEMA PR PRN (12:22)
[2019-08-09] MEDS ORDERED: Milk Of Magnesia 30 ML UDCUP PO PRN (12:22)
[2019-08-09] MEDS ORDERED: Bisacodyl 5 MG TAB PO PRN (12:22)
[2019-08-09] MEDS ORDERED: Bisacodyl 10 MG SUPP PR PRN (12:22)
--- NOTE | 2019-08-09 12:25 | OP ---
DATE OF PROCEDURE: 08/08/2019 PREOPERATIVE DIAGNOSIS: Coronary artery disease. PROCEDURE PERFORMED: Coronary artery bypass graft x4; left internal mammary artery to a 2-mm LAD, slightly large proximal saphenous vein to a 2 mm OM1 to a 1.5 mm PDA and a 1.5 mm posterolateral or distal circumflex rather. LEARNING DESIGNER: Abdelrahman Rdz MD. DESCRIPTION OF PROCEDURE: After adequate anesthesia had been obtained, the patient was prepped and draped. I did an endovascular vein harvest of the left greater saphenous vein from mid calf to proximal thigh, following which I did a median sternotomy, harvesting the left internal mammary artery. The patient was heparinized. Mammary divided distally and passed posterior to the thymus gland. Following aortic and right atrial cannulation, cardiopulmonary bypass was begun. Vessels were inspected for grafting. The aorta was crossclamped and a liter of cold blood cardioplegia given through the aortic root, following which 4 distal anastomoses were completed. Cross-clamp was removed. Partial occluding clamp placed and 2 proximal anastomoses performed on the aortic root and marked with rings and the partial occluding clamp removed. The distal circumflex graft was then anastomosed to the side of the PDA vein graft at about the acute margin of the heart. Following completion of this, the patient was weaned from cardiopulmonary bypass. Cannula was removed and protamine given systemically. Following this, mediastinal drains x2 were placed, and after obtaining good hemostasis, the sternum was reapproximated with #7 interrupted wire with the bone being somewhat fragile. Subcutaneous tissue and skin were closed in layers and vancomycin paste was used on the sternal edges, platelet-rich blood and platelet-poor plasma on the subcutaneous tissues. Job ID: [id number]
[2019-08-09] MEDS ORDERED: Dextrose 50% Abboject 50 ML SYRINGE SLOW IVP PRN (12:42)
[2019-08-09] MEDS ORDERED: Dextrose 5% in Water 1,000 ML IV PRN (12:42)
[2019-08-09] MEDS: Insulin Regular 300 UNITS/3 ML VIAL SC PRN (16:49)
--- NOTE | 2019-08-09 17:36 | CON ---
DATE OF CONSULTATION: 08/09/2019 SERVICE: Pulmonary Medicine. REASON FOR CONSULTATION: ICU patient. HISTORY OF PRESENT ILLNESS: The patient is a 69-year-old white male with past medical history significant for coronary artery disease. Yesterday, he was discovered to have operable disease, and went for coronary artery bypass graft x3 vessels. He really did well postoperatively, and was extubated in the OR prior to coming up to the ICU. He denies any current fevers, chills, nausea, or vomiting. He has appropriate chest discomfort. He notes having progressive dyspnea on exertion over the past 2 to 3 years. He was concerned that he was having a lung problem and actually requested to talk to a lung doctor. He coughs every morning. He has acid reflux disease. His coughs tends to taper as the day goes by. He has never had any wheezing events or spells, in which he had a breathing attack. He has never had significant history of asthma. Currently, he is returning to his usual state of health and his postoperative course to date has been unremarkable. He has a known diagnosis of obstructive sleep apnea. He indicates that he has tried over 20 different masks with [facility], but has been unsuccessful identifying one that would prevent significant leak that he could use. He actually likes using his CPAP equipment, but the leak is so frustrating that he has been in therapy at this point. PAST MEDICAL HISTORY: 1. Coronary artery disease. 2. Type 2 diabetes mellitus. 3. Esophageal stricture, status post multiple dilations. 4. Dyslipidemia. 5. Hiatal hernia. 6. Gastroesophageal reflux disease. 7. Diverticulosis. 8. Obstructive sleep apnea. PAST SURGICAL HISTORY: 1. Left knee surgery. 2. Bilateral hip surgery. 3. Cardiac catheterization with history of PCI. 4. EGD. 5. Colonoscopy. 6. Left inguinal hernia repair. 7. Sinus surgery. 8. Left orchiectomy. 9. Coronary artery bypass graft surgery. ALLERGIES: QUINOLONES, HYDROCODONE, AND TRAMADOL. MEDICATIONS: List of his inpatient medications was reviewed. No specific updates were made at this time. SOCIAL HISTORY: Negative for current alcohol, tobacco, or illicit drug use. He started smoking when he was 19 years old and continue this until 1999. He has about a [id number] history in total. FAMILY HISTORY: Noncontributory. REVIEW OF SYSTEMS: General; head, ears, eyes, nose, throat; cardiovascular; respiratory; GI; ; musculoskeletal; neurologic; and skin are negative except as mentioned in the HPI. PHYSICAL EXAMINATION: VITAL SIGNS: Afebrile, pulse 74, blood pressure 120/84, respirations 19, and saturation 94% currently on 4 L nasal cannula. GENERAL: The patient is awake and alert, in no apparent distress. LUNGS: Wonderful air entry. No prolonged expiratory phase, wheezing, crackles , or rhonchi are present. HEART: Normal rate and regular. ABDOMEN: Soft, nontender, and nondistended. Bowel sounds are positive. MUSCULOSKELETAL: No cyanosis or clubbing. No pitting in the bilateral lower extremities. NEUROLOGIC: Grossly nonfocal. LABORATORY DATA: WBC 10.1, hemoglobin 12.9 and stable, platelets 188,000. INR 1.4. Basic metabolic profile is unremarkable. Blood sugar ranges from 111 to 160. Hemoglobin A1c 7.4, troponin is unremarkable. Liver function studies are unremarkable. IMAGIN. Chest x-ray demonstrates right-sided subclavian central venous catheter terminates in good position. I honestly can see the mediastinal drain, and chest tube that are likely present. No pneumothorax is otherwise appreciated. There has been interval extubation. 2. Echocardiogram demonstrates normal ejection fraction and structurally normal valves. ASSESSMENT: 1. Acute hypoxic respiratory failure, likely transient. 2. Unstable angina. 3. Coronary artery disease, status post coronary artery bypass graft, postop day #1. 4. Dyspnea on exertion, possibly secondary to heart disease. 5. Obstructive sleep apnea, history of. DISCUSSION AND PLAN: The patient is stable for transition out of the ICU to the telemetry unit. When he leaves the ICU, he will have no further requirements for Pulmonary or Critical Care opinion. The patient is interested in knowing whether or not he has any underlying lung disease. I will have him return to clinic in 2 to 3 months in the outpatient setting, so we can clarify whether or not he has a lung problem. My suspicion is he does not. 70 minutes have been devoted to this patient in various activities. I personally reviewed all imaging studies and laboratory data noted within this document. For fifty percent of this time, I was interacting with the patient at the bedside or coordinating care with the care team. For the remainder of the time I was immediately available to the patient in the hospital unit. Job ID: [id number] [facility]
[2019-08-09] MEDS: Famotidine 20 MG TAB PO SCH (20:55)
[2019-08-09] MEDS: Pravastatin Sodium 20 MG TAB PO SCH (20:55)
--- NOTE | 2019-08-09 21:10 | PDOC.HOSPP ---
- Subjective Encounter Date: 08/09/19 Encounter Time: 09:00 Subjective: Patient seen and examined for CAD. No CP. Pain controlled. No new complaints. No overnight events - Objective Vital Signs & Weight: Vital Signs (12 hours) Temp Pulse Pulse BP BP Pulse Ox Pulse Ox 08/09/19 18:20 92 L 08/09/19 16:00 98.7 F 08/09/19 13:49 80 70 120/84 103/71 94 L 08/09/19 12:00 98.7 F Weight Weight 228 lb 2.855 oz Most Recent Monitor Data Heart Rate from ECG 88 NIBP 133/97 NIBP BP-Mean 109 Respiration from ECG 20 SpO2 95 I&O: 08/08/19 08/09/19 08/10/19 06:59 06:59 06:59 Intake Total 1722.1 1239 Output Total 1150 2450 942 Balance -1150 -727.9 297 Result Diagrams: 08/09/19 03:00 08/09/19 03:00 Additional Labs: Accuchecks 08/09/19 08/09/19 08/09/19 20:34 16:51 11:30 POC Glucose 145 H 170 H 160 H 08/09/19 08/09/19 08/09/19 06:00 04:56 04:17 POC Glucose 115 H 112 H 111 H 08/09/19 08/09/19 08/09/19 03:03 02:18 01:18 POC Glucose 122 H 101 104 08/09/19 08/08/19 08/08/19 00:04 22:59 21:57 POC Glucose 150 H 136 H 116 H 08/08/19 08/08/19 20:53 20:01 POC Glucose 108 126 H Radiology Reviewed by me: Yes (CXR - no infiltrate) EKG Reviewed by me: Yes (Tele SR) Hospitalist ROS - Review of Systems Respiratory: denies: cough, dry, shortness of breath, hemoptysis, SOB with excertion, pleuritic pain, sputum, wheezing, other Cardiovascular: denies: chest pain, palpitations, orthopnea, paroxysmal noc. dyspnea, edema, light headedness, other - Medication Medications: Active Medications Generic Name Dose Route Start Last Admin Trade Name Freq PRN Reason Stop Dose Admin Famotidine 20 mg 08/09/19 21:00 08/09/19 20:55 Pepcid PO 20 mg BID CHIRAG Administration Fentanyl 25 mcg 08/09/19 12:22 08/09/19 16:43 Sublimaze SLOW IVP 25 mcg Q2H PRN Administration Moderate breakthrough pain Insulin Human Regular 0 units 08/09/19 12:42 08/09/19 16:49 Humulin R SC 4 unit Q4H PRN Administration POST OP SLIDING SCALE Protocol Ketorolac Tromethamine 15 mg 08/08/19 18:00 08/09/19 17:41 Toradol IVP 08/10/19 18:01 15 mg Q6HR CHIRAG Administration Metoprolol Succinate 25 mg 08/09/19 09:00 08/09/19 09:20 Toprol Xl PO 25 mg DAILY CHIRAG Administration Polyethylene Glycol 17 gm 08/09/19 09:00 08/09/19 09:20 Miralax PO 17 gm DAILY CHIRAG Administration Pravastatin Sodium 10 mg 08/08/19 21:00 08/09/19 20:55 Pravachol PO 10 mg HS CHIRAG Administration - Exam General Appearance: NAD Heart: RRR, no gallops Respiratory: no wheezes, rhonchi Respiratory - other findings: chest tube + Gastrointestinal: soft, non-tender, normal bowel sounds Extremities: no cyanosis Neurological: no new deficit Hosp A/P - Plan DVT proph w/SCDs 1. CP/Unstable angina 2. CAD s/p LAD stent placement in 2011. 3. Hyperlipidemia. 4. s/p CABG 08/08 5. Chronic kidney disease, stage 2. 6. Gastroesophageal reflux disease. 7. Chronic dizziness/vertigo. 8. Diverticulosis. 9. Diabetes mellitus type 2. 10. Degenerative joint disease. 11. Former smoker. 12. Family history of heart disease. 13. Hyponatremia PLAN: 08/09 Cont ASA/Statins Probable transfer to [facility] later today Cardiac Rehab Cont other meds 08/08 s/p CABG Cont ASA/Statins On Insulin drip Cont other meds AM labs
[2019-08-10] MEDS: Fentanyl 100 MCG/2 ML VIAL SLOW IVP PRN (03:50)
[2019-08-10 04:40] LABS: #Eosinphils 0.1 thou/uL (0.0-0.7); #Lymphocytes 1.6 thou/uL (1.20-3.40); #Monocytes 0.9 thou/uL (0.11-0.59); #Neutrophils 7.5 thou/uL (1.40-6.50); %Basophils 0.2 % (0.0-1.0); %Eosinophils 0.8 % (0.0-10.0); %Lymphocytes 15.8 % (21.0-51.0); %Monocytes 9.3 % (0.0-10.0); %Neutrophils 73.8 % (42.0-75.0); Hemoglobin 13.1 g/dL (14.0-18.0); Mean Corpuscular HGB CONC 35.2 g/dL (32.0-36.0); Mean Corpuscular Hemoglobin 34.5 pg (27.0-31.0); Mean Platelet Volume 6.9 fL (7.4-10.4); Platelet Count 188 thou/uL (130-400); RBC Distribution Width 11.8 % (11.5-14.5); Red Blood Cell (RBC) Count 3.78 mill/uL (4.70-6.10); White Blood Cell (WBC) Count 10.1 thou/uL (4.8-10.8)
[2019-08-10 05:09] LABS: Anion Gap 12 mmol/L (10-20); BUN (Urea Nitrogen) 11 mg/dL (8.4-25.7); Calc. Creatinine Clearance 160 mL/min (70-130); Calcium 8.2 mg/dL (7.8-10.44); Carbon Dioxide 24 mmol/L (23-31); Chloride 104 mmol/L (98-107); Estimated GFR-MDRD Greater than 90; Glucose 128 mg/dL (80-115); Magnesium 2.1 mg/dL (1.6-2.6); Potassium 3.9 mmol/L (3.5-5.1); Sodium 136 mmol/L (136-145)
[2019-08-10] MEDS: Ketorolac Tromethamine 30 MG/ML VIAL IVP SCH ×3 (05:46→17:11)
[2019-08-10] MEDS: Potassium Chloride 10 MEQ TAB PO SCH (08:37)
[2019-08-10] MEDS: Clopidogrel Bisulfate 75 MG TAB PO SCH (08:37)
[2019-08-10] MEDS: Aspirin 81 mg Enteric Coated Tablet PO SCH (08:37)
[2019-08-10] MEDS: Furosemide 40 MG TAB PO SCH (08:37)
[2019-08-10] MEDS: Famotidine 20 MG TAB PO SCH ×2 (08:37→20:15)
[2019-08-10] MEDS: metFORMIN 500 MG TAB PO SCH ×2 (08:38→17:12)
[2019-08-10] MEDS: Polyethylene Glycol 3350 17 GM Packet PO SCH (08:38)
[2019-08-10] MEDS ORDERED: Benzonatate 100 MG CAP PO SCH (09:00)
[2019-08-10] MEDS: Insulin Regular 300 UNITS/3 ML VIAL SC PRN ×2 (11:27→17:12)
--- NOTE | 2019-08-10 12:06 | PRG ---
DATE OF SERVICE: 08/10/2019 SUBJECTIVE: This morning, he is on telemetry, in no distress. OBJECTIVE: VITAL SIGNS: Temperature 98, pulse 70, respiratory rate 20, saturations 90% on room air, blood pressure 110/74. CHEST: No wheezing or crackles. CARDIAC: Normal S1 and S2. No gallops. ABDOMEN: No mass. IMPRESSION: Status post CABG, former smoker. PLAN: Neb treatments as needed. Pulmonary will follow at a distance. Follow up with Dr. Anne in the office. Job ID: [id number]
--- NOTE | 2019-08-10 16:05 | PDOC.HOSPP ---
- Subjective Encounter Date: 08/10/19 Encounter Time: 08:40 Subjective: Pt seen for followup re: unstable angina. Feels well, no complaints today. - Objective Vital Signs & Weight: Vital Signs (12 hours) Temp Pulse Pulse Pulse Resp BP BP 08/10/19 15:25 97.9 F 77 20 08/10/19 13:43 78 77 121/79 114/63 08/10/19 11:10 98.5 F 78 20 08/10/19 08:55 77 82 141/68 H 107/70 08/10/19 08:36 98.8 F 81 17 BP BP Pulse Ox 08/10/19 15:25 129/71 98 08/10/19 13:43 08/10/19 11:10 110/74 97 08/10/19 08:55 08/10/19 08:36 111/64 96 Weight Weight 235 lb Most Recent Monitor Data Heart Rate from ECG 88 NIBP 133/97 NIBP BP-Mean 109 Respiration from ECG 20 SpO2 95 I&O: 08/09/19 08/10/19 08/11/19 06:59 06:59 06:59 Intake Total 1722.1 1719 Output Total 2450 3402 Balance -727.9 -1683 Result Diagrams: 08/10/19 04:28 08/10/19 04:28 Additional Labs: Accuchecks 08/10/19 08/10/19 08/09/19 10:27 05:47 20:34 POC Glucose 246 H 152 H 145 H 08/09/19 16:51 POC Glucose 170 H Labs and MARs reviewed by me EKG Reviewed by me: Yes (Tele: NSR) Hospitalist ROS - Review of Systems Respiratory: denies: cough, shortness of breath, SOB with excertion, pleuritic pain, wheezing Cardiovascular: denies: chest pain, palpitations, orthopnea, paroxysmal noc. dyspnea, edema, light headedness - Medication Medications: Active Medications Generic Name Dose Route Start Last Admin Trade Name Freq PRN Reason Stop Dose Admin Aspirin 81 mg 08/10/19 09:00 08/10/19 08:37 Ecotrin PO 81 mg DAILY CHIRAG Administration Clopidogrel Bisulfate 75 mg 08/10/19 09:00 08/10/19 08:37 Plavix PO 75 mg DAILY CHIRAG Administration Famotidine 20 mg 08/09/19 21:00 08/10/19 08:37 Pepcid PO 20 mg BID CHIRAG Administration Fentanyl 25 mcg 08/09/19 12:22 08/10/19 03:50 Sublimaze SLOW IVP 25 mcg Q2H PRN Administration Moderate breakthrough pain Furosemide 40 mg 08/10/19 09:00 08/10/19 08:37 Lasix PO 40 mg DAILY CHIRAG Administration Insulin Human Regular 0 units 08/09/19 12:42 08/10/19 11:27 Humulin R SC 6 unit Q4H PRN Administration POST OP SLIDING SCALE Protocol Ketorolac Tromethamine 15 mg 08/08/19 18:00 08/10/19 11:24 Toradol IVP 08/10/19 18:01 15 mg Q6HR CHIRAG Administration Metformin HCl 500 mg 08/10/19 08:00 08/10/19 08:38 Glucophage PO 500 mg BID-WM CHIRAG Administration Metoprolol Succinate 25 mg 08/09/19 09:00 08/10/19 08:37 Toprol Xl PO 25 mg DAILY CHIRAG Administration Polyethylene Glycol 17 gm 08/09/19 09:00 08/10/19 08:38 Miralax PO 17 gm DAILY CHIRAG Administration Potassium Chloride 10 meq 08/10/19 08:00 08/10/19 08:37 Klor-Con 10 PO 10 meq QAM-WM CHIRAG Administration Pravastatin Sodium 10 mg 08/08/19 21:00 08/09/19 20:55 Pravachol PO 10 mg HS CHIRAG Administration - Exam General Appearance: NAD Eye: anicteric sclera ENT: moist mucosa Neck: supple Heart: RRR Respiratory: CTAB, no rales Gastrointestinal: soft, non-tender Extremities: no clubbing Musculoskeletal: no muscle wasting Psychiatric: normal affect, normal behavior Hosp A/P - Plan ASSESSMENT: 1. Unstable angina 2. CAD 3. Hyperlipidemia. 4. s/p CABG 08/08 5. Chronic kidney disease, stage 2. 6. Gastroesophageal reflux disease. 7. Chronic dizziness/vertigo. 8. Diverticulosis. 9. Diabetes mellitus type 2. 10. Degenerative joint disease. 11. Former smoker. 12. Family history of heart disease. 13. Hyponatremia PLAN: Continue aspirin and statin. Pt has been transfered to telemetry. CV surgery following. Cardiac Rehab
[2019-08-10] MEDS: Pravastatin Sodium 20 MG TAB PO SCH (20:15)
[2019-08-10] MEDS ORDERED: Ibuprofen 800 MG TAB PO SCH (22:00)
[2019-08-11] MEDS: Fentanyl 100 MCG/2 ML VIAL SLOW IVP PRN ×2 (01:31→14:43)
[2019-08-11] MEDS: metFORMIN 500 MG TAB PO SCH ×2 (07:04→16:10)
[2019-08-11] MEDS: Potassium Chloride 10 MEQ TAB PO SCH (07:05)
[2019-08-11] MEDS: Acetaminophen 325 MG TAB PO PRN ×2 (07:06→14:41)
[2019-08-11] MEDS ORDERED: Sodium Chloride 0.65% Nasal 44 ML BOT EA NARE PRN (07:59)
[2019-08-11] MEDS: Furosemide 40 MG TAB PO SCH (08:43)
[2019-08-11] MEDS: Polyethylene Glycol 3350 17 GM Packet PO SCH (08:43)
[2019-08-11] MEDS: Clopidogrel Bisulfate 75 MG TAB PO SCH (08:43)
[2019-08-11] MEDS: Famotidine 20 MG TAB PO SCH ×2 (08:43→21:52)
[2019-08-11] MEDS: Aspirin 81 mg Enteric Coated Tablet PO SCH (08:43)
[2019-08-11] MEDS: Ubidecarenone 50 MG CAP PO SCH (09:38)
[2019-08-11] MEDS: Enoxaparin Sodium 40 MG/0.4 ML SYRINGE SC SCH (09:38)
[2019-08-11] MEDS: Insulin Regular 300 UNITS/3 ML VIAL SC PRN ×2 (11:58→17:36)
--- NOTE | 2019-08-11 13:08 | PDOC.HOSPP ---
- Subjective Encounter Date: 08/11/19 Encounter Time: 08:40 Subjective: Pt seen for followup re: unstable angina. feels better, no complaints. - Objective Vital Signs & Weight: Vital Signs (12 hours) Temp Pulse Pulse Pulse Resp BP BP 08/11/19 11:53 98.0 F 69 18 08/11/19 09:00 70 72 133/65 120/66 08/11/19 07:09 08/11/19 07:02 98.1 F 70 16 08/11/19 05:00 98.4 F 70 16 BP BP Pulse Ox 08/11/19 11:53 138/75 96 08/11/19 09:00 08/11/19 07:09 96 08/11/19 07:02 111/67 96 08/11/19 05:00 122/69 94 L Weight Weight 228 lb Most Recent Monitor Data Heart Rate from ECG 88 NIBP 133/97 NIBP BP-Mean 109 Respiration from ECG 20 SpO2 95 I&O: 08/10/19 08/11/19 08/12/19 06:59 06:59 06:59 Intake Total 1719 640 Output Total 3402 600 200 Balance -1683 40 -200 Result Diagrams: 08/10/19 04:28 08/10/19 04:28 Additional Labs: Accuchecks 08/11/19 08/11/19 08/10/19 11:01 05:06 20:41 POC Glucose 154 H 146 H 141 H 08/10/19 16:35 POC Glucose 204 H Labs and MARs reviewed by me EKG Reviewed by me: Yes (Tele: NSR) Hospitalist ROS - Review of Systems Cardiovascular: denies: chest pain, palpitations, orthopnea, paroxysmal noc. dyspnea, edema, light headedness Skin: denies: rash, lesions, nikia, bruising - Medication Medications: Active Medications Generic Name Dose Route Start Last Admin Trade Name Freq PRN Reason Stop Dose Admin Acetaminophen 650 mg 08/09/19 12:22 08/11/19 07:06 Tylenol PO 650 mg Q6H PRN Administration Headache/Fever or Pain Aspirin 81 mg 08/10/19 09:00 08/11/19 08:43 Ecotrin PO 81 mg DAILY CHIRAG Administration Clopidogrel Bisulfate 75 mg 08/10/19 09:00 08/11/19 08:43 Plavix PO 75 mg DAILY CHIRAG Administration Coenzyme Q10 400 mg 08/11/19 09:00 08/11/19 09:38 Coenzyme Q10 PO 400 mg DAILY CHIRAG Administration Enoxaparin Sodium 40 mg 08/11/19 09:00 08/11/19 09:38 Lovenox SC 40 mg 0900 CHIRAG Administration Famotidine 20 mg 08/09/19 21:00 08/11/19 08:43 Pepcid PO 20 mg BID CHIRAG Administration Fentanyl 25 mcg 08/09/19 12:22 08/11/19 01:31 Sublimaze SLOW IVP 25 mcg Q2H PRN Administration Moderate breakthrough pain Furosemide 40 mg 08/10/19 09:00 08/11/19 08:43 Lasix PO 40 mg DAILY CHIRAG Administration Insulin Human Regular 0 units 08/09/19 12:42 08/11/19 11:58 Humulin R SC 3 unit Q4H PRN Administration POST OP SLIDING SCALE Protocol Magnesium Hydroxide 30 ml 08/09/19 12:22 08/10/19 20:15 Milk Of Magnesium PO 30 ml Q12H PRN Administration Constipation Metformin HCl 500 mg 08/10/19 08:00 08/11/19 07:04 Glucophage PO 500 mg BID-WM CHIRAG Administration Metoprolol Succinate 25 mg 08/09/19 09:00 08/11/19 08:43 Toprol Xl PO 25 mg DAILY CHIRAG Administration Mineral Oil 133 ml 08/09/19 12:22 08/10/19 17:19 Fleet Mineral Oil [place] 133 ml DAILYPRN PRN Administration Constipation Polyethylene Glycol 17 gm 08/09/19 09:00 08/11/19 08:43 Miralax PO 17 gm DAILY CHIRAG Administration Potassium Chloride 10 meq 08/10/19 08:00 08/11/19 07:05 Klor-Con 10 PO 10 meq QAM-WM CHIRAG Administration Pravastatin Sodium 10 mg 08/08/19 21:00 08/10/19 20:15 Pravachol PO 10 mg HS CHIRAG Administration - Exam General Appearance: NAD, awake alert Eye: anicteric sclera ENT: moist mucosa Neck: supple, no JVD Heart: RRR, no gallops Respiratory: CTAB Gastrointestinal: soft Neurological: no weakness Psychiatric: normal affect, normal behavior Hosp A/P - Plan ASSESSMENT: 1. Unstable angina 2. CAD 3. Hyperlipidemia. 4. s/p CABG 08/08 5. Chronic kidney disease, stage 2. 6. Gastroesophageal reflux disease. 7. Chronic dizziness/vertigo. 8. Diverticulosis. 9. Diabetes mellitus type 2. 10. Degenerative joint disease. 11. Former smoker. 12. Family history of heart disease. 13. Hyponatremia PLAN: s/p CABG for CAD causing unstable angina. On aspirin and statin. On alarm security or surveillance monitor. CV surgery following. Cardiac Rehab Pt has been advised Coenzyme Q10 by cardiology service.
[2019-08-11] MEDS: Pravastatin Sodium 20 MG TAB PO SCH (21:52)
--- NOTE | 2019-08-12 08:37 | PRG ---
DATE OF SERVICE: 08/12/2019 SUBJECTIVE: Mr. Singh is doing fine. No complaints other than the chest soreness post bypass. He is doing otherwise fine. OBJECTIVE: VITAL SIGNS: Blood pressure 138/72, pulse 64 and regular. LUNGS: Clear. CARDIAC: Normal S1, normal S2. ABDOMEN: Soft and nontender. EXTREMITIES: No edema. ASSESSMENT: 1. Coronary artery disease. 2. Status post bypass surgery. 3. Statin intolerance. PLAN: 1. Consider Repatha as an outpatient. 2. Not a candidate for Vascepa, triglycerides 49. 3. As he has some nasal congestion, add Zyrtec. Job ID: [id number]
[2019-08-12] MEDS: Aspirin 81 mg Enteric Coated Tablet PO SCH (08:59)
[2019-08-12] MEDS: Ubidecarenone 50 MG CAP PO SCH (08:59)
[2019-08-12] MEDS: Furosemide 40 MG TAB PO SCH (08:59)
[2019-08-12] MEDS: Enoxaparin Sodium 40 MG/0.4 ML SYRINGE SC SCH (09:00)
[2019-08-12] MEDS: Loratadine 10 MG TAB PO SCH (09:00)
[2019-08-12] MEDS: Potassium Chloride 10 MEQ TAB PO SCH (09:00)
[2019-08-12] MEDS: metFORMIN 500 MG TAB PO SCH ×3 (09:00→21:18)
[2019-08-12] MEDS: Clopidogrel Bisulfate 75 MG TAB PO SCH (09:00)
[2019-08-12] MEDS: Famotidine 20 MG TAB PO SCH ×2 (09:00→21:18)
[2019-08-12] MEDS: Polyethylene Glycol 3350 17 GM Packet PO SCH (09:01)
[2019-08-12] MEDS: Insulin Regular 300 UNITS/3 ML VIAL SC PRN ×2 (11:12→17:35)
[2019-08-12] MEDS: Acetaminophen 325 MG TAB PO PRN ×2 (14:45→21:17)
--- NOTE | 2019-08-12 15:02 | PDOC.HOSPP ---
- Subjective Encounter Date: 08/12/19 Encounter Time: 08:20 Subjective: Pt seen for followup for unstable angina. feels better today. Denies any chest pain. - Objective Vital Signs & Weight: Vital Signs (12 hours) Temp Pulse Pulse Pulse Resp BP BP 08/12/19 11:15 97.5 F L 70 18 08/12/19 08:57 75 68 144/78 H 135/71 08/12/19 07:45 98.9 F 70 18 08/12/19 03:48 97.9 F 64 18 BP BP Pulse Ox 08/12/19 11:15 132/75 97 08/12/19 08:57 08/12/19 07:45 135/77 97 08/12/19 03:48 138/72 96 Weight Weight 230 lb 4 oz Most Recent Monitor Data Heart Rate from ECG 88 NIBP 133/97 NIBP BP-Mean 109 Respiration from ECG 20 SpO2 95 I&O: 08/11/19 08/12/19 08/13/19 06:59 06:59 06:59 Intake Total 640 1600 Output Total 600 2520 Balance 40 -920 Result Diagrams: 08/10/19 04:28 08/10/19 04:28 Additional Labs: Accuchecks 08/12/19 08/12/19 08/11/19 10:37 05:46 21:19 POC Glucose 178 H 117 H 130 H 08/11/19 16:28 POC Glucose 172 H labs and MARs reviewed by tx Hospitalist ROS - Review of Systems Constitutional: reports: weakness Cardiovascular: denies: chest pain, palpitations, orthopnea, paroxysmal noc. dyspnea, edema, light headedness Gastrointestinal: denies: nausea, vomiting, abdominal pain, diarrhea, constipation, melena, hematochezia - Medication Medications: Active Medications Generic Name Dose Route Start Last Admin Trade Name Freq PRN Reason Stop Dose Admin Acetaminophen 650 mg 08/09/19 12:22 08/12/19 14:45 Tylenol PO 650 mg Q6H PRN Administration Headache/Fever or Pain Aspirin 81 mg 08/10/19 09:00 08/12/19 08:59 Ecotrin PO 81 mg DAILY CHIRAG Administration Clopidogrel Bisulfate 75 mg 08/10/19 09:00 08/12/19 09:00 Plavix PO 75 mg DAILY CHIRAG Administration Coenzyme Q10 400 mg 08/11/19 09:00 08/12/19 08:59 Coenzyme Q10 PO 400 mg DAILY CHIRAG Administration Enoxaparin Sodium 40 mg 08/11/19 09:00 08/12/19 09:00 Lovenox SC 40 mg 0900 CHIRAG Administration Famotidine 20 mg 08/09/19 21:00 08/12/19 09:00 Pepcid PO 20 mg BID CHIRAG Administration Fentanyl 25 mcg 08/09/19 12:22 08/11/19 14:43 Sublimaze SLOW IVP 25 mcg Q2H PRN Administration Moderate breakthrough pain Furosemide 40 mg 08/10/19 09:00 08/12/19 08:59 Lasix PO 40 mg DAILY CHIRAG Administration Insulin Human Regular 0 units 08/09/19 12:42 08/12/19 11:12 Humulin R SC 4 unit Q4H PRN Administration POST OP SLIDING SCALE Protocol Loratadine 10 mg 08/12/19 09:00 08/12/19 09:00 Claritin PO 10 mg DAILY CHIRAG Administration Magnesium Hydroxide 30 ml 08/09/19 12:22 08/10/19 20:15 Milk Of Magnesium PO 30 ml Q12H PRN Administration Constipation Metformin HCl 1,000 mg 08/12/19 09:00 08/12/19 09:00 Glucophage PO 1,000 mg BID CHIRAG Administration Metoprolol Succinate 25 mg 08/09/19 09:00 08/12/19 09:00 Toprol Xl PO 25 mg DAILY CHIRAG Administration Mineral Oil 133 ml 08/09/19 12:22 08/10/19 17:19 Fleet Mineral Oil [place] 133 ml DAILYPRN PRN Administration Constipation Polyethylene Glycol 17 gm 08/09/19 09:00 08/12/19 09:01 Miralax PO 17 gm DAILY CHIRAG Administration Potassium Chloride 10 meq 08/10/19 08:00 08/12/19 09:00 Klor-Con 10 PO 10 meq QAM-WM CHIRAG Administration Pravastatin Sodium 10 mg 08/08/19 21:00 08/11/19 21:52 Pravachol PO 10 mg HS CHIRAG Administration Sodium Chloride 1 ml 08/11/19 07:59 08/12/19 11:16 [place] Nasal [place] 0.65% EA NARE 1 ml TIDPRN PRN Administration Nasal Congestion - Exam General Appearance: NAD Eye: anicteric sclera ENT: moist mucosa Neck: supple, no JVD Heart: RRR Respiratory: CTAB Gastrointestinal: soft, non-tender Skin: no rashes Psychiatric: normal affect, normal behavior Hosp A/P - Plan ASSESSMENT: 1. Unstable angina 2. CAD 3. Hyperlipidemia. 4. s/p CABG 08/08 5. Chronic kidney disease, stage 2. 6. Gastroesophageal reflux disease. 7. Chronic dizziness/vertigo. 8. Diverticulosis. 9. Diabetes mellitus type 2. 10. Degenerative joint disease. 11. Former smoker. 12. Family history of heart disease. 13. Hyponatremia PLAN: Metformin dose increased to 1,000 mg PO BID. Continue aspirin and statin. Cardiac Rehab Rehab eval.
[2019-08-12] MEDS: Pravastatin Sodium 20 MG TAB PO SCH (21:17)
[2019-08-13] MEDS: Acetaminophen 325 MG TAB PO PRN ×2 (02:41→17:09)
[2019-08-13] MEDS: Ondansetron PF 4 MG/2 ML Vial IVP PRN ×2 (02:49→14:03)
[2019-08-13] MEDS: Loratadine 10 MG TAB PO SCH (09:25)
[2019-08-13] MEDS: Famotidine 20 MG TAB PO SCH (09:26)
[2019-08-13] MEDS: Furosemide 40 MG TAB PO SCH (09:26)
[2019-08-13] MEDS: Potassium Chloride 10 MEQ TAB PO SCH (09:26)
[2019-08-13] MEDS: Clopidogrel Bisulfate 75 MG TAB PO SCH (09:26)
[2019-08-13] MEDS: Aspirin 81 mg Enteric Coated Tablet PO SCH (09:27)
[2019-08-13] MEDS: Enoxaparin Sodium 40 MG/0.4 ML SYRINGE SC SCH (09:27)
[2019-08-13] MEDS: Ubidecarenone 50 MG CAP PO SCH (09:27)
[2019-08-13] MEDS: metFORMIN 500 MG TAB PO SCH ×2 (09:28→20:26)
[2019-08-13] MEDS: Polyethylene Glycol 3350 17 GM Packet PO SCH (09:34)
[2019-08-13] MEDS: Insulin Regular 300 UNITS/3 ML VIAL SC PRN (13:58)
[2019-08-13 15:45] VITALS: BP 100/64; TEMP 97.8
--- NOTE | 2019-08-13 19:06 | PRG ---
DATE OF SERVICE: 08/13/2019 SUBJECTIVE: Mr. Singh is complaining of nausea and being unable to eat. He said the food is going down, just feels nauseated. No chest pain or pressure. Otherwise, he is doing okay. OBJECTIVE: VITAL SIGNS: Blood pressure 100/64 and pulse 83 and regular. LUNGS: Clear. CARDIAC: Normal S1 and normal S2. ABDOMEN: Soft and nontender. EXTREMITIES: Reveals no edema. ASSESSMENT: Nausea of uncertain significance. PLAN: 1. Stop coenzyme Q10 in case, it is nauseating him. 2. Go back to pantoprazole instead of Pepcid that is what he is taking at home. Job ID: [id number]
[2019-08-13] MEDS: Pravastatin Sodium 20 MG TAB PO SCH (20:26)
--- NOTE | 2019-08-14 02:15 | PQF ---
NORY SALVADOR DAVID [id number] [facility]-232 [id number] CLINICAL DOCUMENTATION CLARIFICATION FORM: POST DISCHARGE Addendum to original discharge summary date: ____ Late entry note date: __ DATE: 08/14/19 ATTN: Justin Liao Please exercise your independent, professional judgment in responding to the clarification form. Clinical indicators are provided on the bottom of this form for your review Please check appropriate box(s) to clarify if the following diagnosis has been ruled in or ruled out: Acute Hypoxic Respiratory Failure [ x ] Ruled in diagnosis [ ] Continue to treat [x ] Resolved [ ] Ruled out diagnosis [ ] Cannot rule out diagnosis [ ] Other diagnosis [ ] Unable to determine In addition, please specify: Present on Admission (POA): [ x ] Yes [ ] No [ ] Unable to determine For continuity of documentation, please document condition throughout progress notes and discharge summary. Thank You. CLINICAL INDICATORS - SIGNS / SYMPTOMS / LABS Consult Pulmonary Medicine p1 08/09 He notes having progressive dyspnea on exertion over the past 2 to 3 years. He was concerned that he was having a lung problem and actually requested to talk to a lung doctor Consult Pulmonary Medicine p1 08/09 He coughs every morning. He has acid reflux disease. His coughs tends to taper as the day goes by. Consult Pulmonary Medicine p3 08/09 Acute hypoxic Respiratory Failure, likely transient RISK FACTORS Consult Pulmonary Medicine p1 08/09- 69-year-old white male Consult Pulmonary Medicine p1 08/09- s/p coronary artery bypass graft x3 vessels. Consult Pulmonary Medicine p1 08/09- obstructive sleep apnea. TREATMENTS Consult Pulmonary Medicine 08/09 Andrew Li Respiratory Panel 08/09 4L oxygen via nasal cannula (This form is maintained as a part of the permanent medical record) 2014 [employer]. All Rights Reserved [email or web address] [not provided] FRANCESCA
--- NOTE | 2019-08-14 04:02 | DIS ---
DATE OF ADMISSION: 08/07/2019 DATE OF DISCHARGE: 08/13/2019 PRIMARY CARE PROVIDER: Augie Ramirez MD DISCHARGE DIAGNOSES: 1. Unstable angina. 2. Coronary artery disease. 3. Status post coronary artery bypass graft on August 08, 2019. 4. Chronic kidney disease, stage 2. 5. Hyponatremia. 6. Physical deconditioning. 7. Acute hypoxic respiratory failure. CONDITION OF PATIENT ON THE DAY OF DISCHARGE: Stable. I assessed Mr. Singh on the day of discharge. He denies any chest pain or shortness of breath. Vital signs are stable. S1 and S2 are heard, regular. Lungs are clear to auscultation bilaterally. CONSULTATIONS DURING THIS HOSPITALIZATION: 1. Cardiology, Gillian Singh MD. 2. Cardiovascular Surgery, Tang Juarez MD. 3. Pulmonary and Critical Care Medicine, Dr. Anne. POST-ACUTE CARE FOLLOWUP: The patient is advised to follow up with primary care provider in one week, with Dr. Juarez on August 26, 2019, at 3:15 p.m., with Dr. Singh in 2 to 3 weeks, with Dr. Anne in 3 to 4 weeks, and with cardiac rehab. DISCHARGE MEDICATIONS: 1. Aspirin 81 mg daily. 2. Cetirizine 10 mg daily. 3. Nexium 20 mg daily. 4. Metformin dose increased to 1000 mg 2 times a day. 5. Multivitamins one tablet daily. 6. Pravastatin 10 mg at bedtime. 7. Plavix 75 mg daily. 8. Lasix 40 mg daily. 9. Toprol-XL 25 mg daily. 10. Potassium chloride 10 mEq daily. 11. Coenzyme Q10 of 400 mg daily. 12. Crucible nasal spray. HOSPITAL COURSE: Mr. Singh is a pleasant 69-year-old gentleman, who was admitted to [facility] on August 06, 2019, for unstable angina. He was monitored on telemetry. He underwent cardiac catheterization on August 07. He was found to have three-vessel CAD and 50% proximal left main block. He was seen by Cardiovascular Surgery. On August 08, he underwent coronary artery bypass graft x4. He was also seen by Pulmonary and Critical Care Medicine following the surgery. He continued to slowly improve. He was physically deconditioned. He was evaluated by Therapy Services. He is being discharged to [facility] for retirement. His blood sugars were elevated during this hospitalization. His metformin dose was increased to 1000 mg 2 times a day. Many thanks for allowing me to participate in your patient's care. Please feel free to contact me with any questions or concerns. DIET: Heart healthy and diabetic. ACTIVITY: Ad gerri. DISCHARGE DESTINATION: [facility]. TIME SPENT: Total amount of time spent coordinating this discharge: 32 minutes. Job ID: [id number] MTDD
== END 2019-08-13 20:50 | DRG 233 ==
LOC: ERS 06:30 → ERHOLD 08:01 → 2SW 17:49 → OBSVTOIN 08-07 09:51 → CCU 08-08 10:37 → 2NO 08-09 18:37
PROVIDERS: ADMIT Internal Medicine; ATTEND Internal Medicine
PROC: 021209W Bypass Coronary Artery, Three Arteries from Aorta with Autologous Venous Tissue, Open Approach (ICD-10-PCS; principal; 2019-08-08)
PROC: 4A023N7 Measurement of Cardiac Sampling and Pressure, Left Heart, Percutaneous Approach (ICD-10-PCS; 2019-08-08)
PROC: 02100Z9 Bypass Coronary Artery, One Artery from Left Internal Mammary, Open Approach (ICD-10-PCS; 2019-08-08)
PROC: B2111ZZ Fluoroscopy of Multiple Coronary Arteries using Low Osmolar Contrast (ICD-10-PCS; 2019-08-08)
PROC: 5A1221Z Performance of Cardiac Output, Continuous (ICD-10-PCS; 2019-08-08)
PROC: B2151ZZ Fluoroscopy of Left Heart using Low Osmolar Contrast (ICD-10-PCS; 2019-08-08)
DX: I25.110 Atherosclerotic heart disease of native coronary artery with unstable angina pectoris (principal); J96.01 Acute respiratory failure with hypoxia; E87.1 Hypo-osmolality and hyponatremia; E78.5 Hyperlipidemia, unspecified; K21.9 Gastro-esophageal reflux disease without esophagitis; E11.22 Type 2 diabetes mellitus with diabetic chronic kidney disease; N18.2 Chronic kidney disease, stage 2 (mild); K57.30 Diverticulosis of large intestine without perforation or abscess without bleeding; R42 Dizziness and giddiness; G47.33 Obstructive sleep apnea (adult) (pediatric); Z95.5 Presence of coronary angioplasty implant and graft; Z87.891 Personal history of nicotine dependence; Z88.1 Allergy status to other antibiotic agents; Z88.8 Allergy status to other drugs, medicaments and biological substances; Z79.899 Other long term (current) drug therapy; Z79.82 Long term (current) use of aspirin; Z79.84 Long term (current) use of oral hypoglycemic drugs
CPT/HCPCS: 36415; 36416; 36430; 71045; 76942; 80048; 80053; 80061; 83036; 83735; 84484; 85025; 85610; 85730; 86850; 86900; 86901; 93005; 93010; 93306; 93458; 93798; 94760; 99152; 99153; C1769; C1887; J0131; J0690; J1100; J1642; J1644; J1650; J1815; J1885; J2001; J2250; J2405; J2440; J2550; J2720; J3010; J3370; J3475; J3480; J3490; P9045; Q9967; S0017; S0028

== ENCOUNTER 2020-09-01 07:30 | Outpatient (CLI) | payer MEDICARE, BC ==
--- NOTE | 2020-09-01 08:46 | CT ---
CT temporal bones noncontrast: 09/01/2020 HISTORY: 70-year-old male with "H 92.12 otorrhea of left ear" COMPARISON: None FINDINGS: There is dehiscence of the left superior semicircular canal. Otherwise, there is no other morphologic abnormality of the bilateral semicircular canals, cochleae, vestibules, vestibular aqueducts, internal auditory canals, facial nerve canals, carotid canals, or jugular bulbs. Bilateral middle ear cavities and mastoid antra are clear. There is partial opacification of a few mastoid air cells bilaterally, left greater than right, but t he vast majority are clear. Bilateral external auditory canals are grossly clear. No evidence of abnormal thickening of the tympanic membranes. Ossicles are intact, with no displacement or erosion. No erosion of scutum. Thin tegmen tympani and tegmen mastoideum bilaterally. IMPRESSION: 1.) Incidental finding of dehiscence of left superior semicircular canal. 2) otherwise normal
== END 2020-09-01 07:31 | disposition home or self-care (01) ==
LOC: BICCT 07:30
PROVIDERS: ATTEND Otolaryngology Plastic Surgery within the Head & Neck
DX: H92.10 Otorrhea, unspecified ear (principal)
CPT/HCPCS: 70480

== ENCOUNTER 2021-06-28 11:35 | Outpatient (CLI) | payer MEDICARE, BC ==
[2021-06-28 22:50] LABS: SARS-CoV-2 PCR by NAA Not Detected (NotDetected)
== END 2021-06-28 11:36 | disposition home or self-care (01) ==
LOC: LABBT 11:35
PROVIDERS: ATTEND Neurological Surgery
DX: Z01.812 Encounter for preprocedural laboratory examination (principal); R29.898 Other symptoms and signs involving the musculoskeletal system; Z20.822 Contact with and (suspected) exposure to COVID-19
CPT/HCPCS: U0003; U0005

== ENCOUNTER 2021-07-02 09:39 | Day surgery (SDC) | payer MEDICARE, BC ==
[2021-07-01 11:52] VITALS: BMI 28.0
[2021-07-02] MEDS ORDERED: Magnevist 469MG/ML 20 ML VIAL ONE (12:18)
[2021-07-02 12:29] LABS: Estimated GFR-MDRD - POC Greater than 90
[2021-07-02] MEDS ORDERED: Fentanyl 100 MCG/2 ML VIAL ONE (12:38)
[2021-07-02] MEDS ORDERED: Ondansetron PF 4 MG/2 ML Vial ONE (12:45)
[2021-07-02] MEDS ORDERED: PHENYLEPHRINE-NS 100 MCG/ML 10 ML SYRINGE ONE (12:45)
[2021-07-02] MEDS ORDERED: Dexamethasone 20 MG/5 ML VIAL ONE (12:45)
[2021-07-02] MEDS ORDERED: Lidocaine 1% PF 5 ML VIAL ONE (12:45)
[2021-07-02] MEDS ORDERED: ePHEDrine 50 MG/ML VIAL ONE (12:45)
[2021-07-02] MEDS ORDERED: PROPOFOL 200 MG/20 ML VIAL ONE (12:45)
== END 2021-07-02 16:11 | disposition home or self-care (01) ==
LOC: SDC/OP 09:39 → EDSTATUS 11:30 → SDC/OP 16:11
PROVIDERS: ATTEND Neurological Surgery
DX: M50.123 Cervical disc disorder at C6-C7 level with radiculopathy (principal); M48.02 Spinal stenosis, cervical region; M47.22 Other spondylosis with radiculopathy, cervical region; M47.26 Other spondylosis with radiculopathy, lumbar region; M47.27 Other spondylosis with radiculopathy, lumbosacral region; M47.24 Other spondylosis with radiculopathy, thoracic region; M48.061 Spinal stenosis, lumbar region without neurogenic claudication; M48.07 Spinal stenosis, lumbosacral region; M51.36 Other intervertebral disc degeneration, lumbar region; M43.17 Spondylolisthesis, lumbosacral region; I25.10 Atherosclerotic heart disease of native coronary artery without angina pectoris; I10 Essential (primary) hypertension; E78.5 Hyperlipidemia, unspecified; Z88.5 Allergy status to narcotic agent; Z88.8 Allergy status to other drugs, medicaments and biological substances; Z95.1 Presence of aortocoronary bypass graft; Z95.5 Presence of coronary angioplasty implant and graft; J39.2 Other diseases of pharynx; Z88.1 Allergy status to other antibiotic agents; Z79.82 Long term (current) use of aspirin; Z79.899 Other long term (current) drug therapy
CPT/HCPCS: 70553; 72141; 72146; 72148; 82565; A9579; J1100; J2405; J2704; J3010; J3490

== ENCOUNTER 2022-02-12 13:59 | Emergency (ER) | payer MEDICARE, BC | END 2022-02-12 16:13 | disposition home or self-care (01) | LOC: ERS 13:59 | DX: S70.01XA Contusion of right hip, initial encounter (principal); S00.03XA Contusion of scalp, initial encounter; S80.211A Abrasion, right knee, initial encounter; R73.03 Prediabetes; Z79.899 Other long term (current) drug therapy; W10.9XXA Fall (on) (from) unspecified stairs and steps, initial encounter | CPT/HCPCS: 70450; 72125; 72128; 72131; 72170 ==

== ENCOUNTER 2022-04-16 06:43 | Emergency (ER) | payer MEDICARE, BC ==
[2022-04-16 07:22] LABS: #Eosinphils 0.2 thou/uL (0.0-0.7); #Lymphocytes 1.4 thou/uL (1.20-3.40); #Monocytes 0.5 thou/uL (0.11-0.59); #Neutrophils 3.7 thou/uL (1.40-6.50); %Basophils 0.8 % (0.0-1.0); %Eosinophils 3.4 % (0.0-10.0); %Lymphocytes 24.3 % (21.0-51.0); %Monocytes 8.1 % (0.0-10.0); %Neutrophils 63.3 % (42.0-75.0); Hemoglobin 15.6 g/dL (14.0-18.0); Mean Corpuscular HGB CONC 34.9 g/dL (32.0-36.0); Mean Corpuscular Hemoglobin 33.7 pg (27.0-31.0); Mean Corpuscular Volume 96.5 fL (78.0-98.0); Mean Platelet Volume 6.5 fL (7.4-10.4); Platelet Count 259 thou/uL (130-400); RBC Distribution Width 12.3 % (11.5-14.5); Red Blood Cell (RBC) Count 4.62 mill/uL (4.70-6.10); White Blood Cell (WBC) Count 5.8 thou/uL (4.8-10.8)
[2022-04-16] MEDS ORDERED: Ondansetron PF 4 MG/2 ML Vial ONE (07:26)
[2022-04-16 07:49] LABS: Bilirubin Negative (Negative); Blood, Urine Negative (Negative); Clarity Clear (Clear); Glucose, Urine (Dipstick) Normal (Negative); Ketone, Urine Trace mg/dL (Negative); Leukocyte Negative Leu/uL (Negative); Nitrite Negative (Negative); Protein, Urine (Dipstick) Negative (Neg-Trace); Specific Gravity, Urine 1.012 (1.002-1.036); Urobilinogen Normal mg/dL (Less than 2)
[2022-04-16 07:57] LABS: ALT (SGPT) 46 U/L (8-55); AST (SGOT) 31 U/L (5-34); Albumin 4.2 g/dL (3.4-4.8); Alkaline Phosphatase 81 U/L (40-110); Anion Gap 17 mmol/L (10-20); BUN (Urea Nitrogen) 9 mg/dL (8.4-25.7); Bilirubin, Total 1.3 mg/dL (0.2-1.2); Calc. Creatinine Clearance 0 mL/min (70-130); Calcium 9.4 mg/dL (7.8-10.44); Carbon Dioxide 22 mmol/L (23-31); Chloride 97 mmol/L (98-107); Estimated GFR 99; Glucose 142 mg/dL (83-110); Potassium 3.9 mmol/L (3.5-5.1); Protein, Total 7.2 g/dL (5.8-8.1); Sodium 132 mmol/L (136-145)
[2022-04-16] MEDS ORDERED: Lidocaine Viscous Sol 2% 15 ml UD Cup ONE (09:23)
[2022-04-16] MEDS ORDERED: Mag-Al 1200 mg/1200 mg/30 ML UDCUP ONE (09:23)
== END 2022-04-16 10:15 | disposition home or self-care (01) ==
LOC: ERS 06:43
DX: F41.9 Anxiety disorder, unspecified (principal); R11.0 Nausea; I10 Essential (primary) hypertension; Z79.899 Other long term (current) drug therapy
CPT/HCPCS: 36416; 71045; 80053; 81003; 85025; 87086; 93005; 96374; J2405

== ENCOUNTER 2022-12-01 14:46 | Emergency (ER) | payer MEDICARE, BC ==
[2022-12-01] MEDS ORDERED: Acetaminophen 500 MG TAB ONE (16:12)
[2022-12-01 16:15] LABS: #Eosinphils 0.2 thou/uL (0.0-0.7); #Lymphocytes 1.1 thou/uL (1.20-3.40); #Monocytes 0.6 thou/uL (0.11-0.59); #Neutrophils 6.7 thou/uL (1.40-6.50); %Basophils 0.3 % (0.0-1.0); %Eosinophils 2.4 % (0.0-10.0); %Lymphocytes 12.8 % (21.0-51.0); %Monocytes 6.8 % (0.0-10.0); %Neutrophils 77.7 % (42.0-75.0); Hemoglobin 15.3 g/dL (14.0-18.0); Mean Corpuscular HGB CONC 34.2 g/dL (32.0-36.0); Mean Corpuscular Hemoglobin 34.1 pg (27.0-31.0); Mean Corpuscular Volume 99.6 fl (78.0-98.0); Mean Platelet Volume 6.8 fL (7.4-10.4); Platelet Count 202 10x3/uL (130-400); RBC Distribution Width 11.9 % (11.5-14.5); Red Blood Cell (RBC) Count 4.49 mill/uL (4.70-6.10); White Blood Cell (WBC) Count 8.6 10x3/uL (4.8-10.8)
[2022-12-01 16:41] LABS: ALT (SGPT) 28 U/L (8-55); AST (SGOT) 26 U/L (5-34); Albumin 4.1 g/dL (3.4-4.8); Alkaline Phosphatase 84 U/L (40-110); Anion Gap 13 mmol/L (10-20); BUN (Urea Nitrogen) 17 mg/dL (8.4-25.7); Bilirubin, Total 0.6 mg/dL (0.2-1.2); Calc. Creatinine Clearance 0 mL/min (70-130); Calcium 9.4 mg/dL (7.8-10.44); Carbon Dioxide 26 mmol/L (23-31); Chloride 97 mmol/L (98-107); Estimated GFR 100; Globulin 2.6 g/dL (2.4-3.5); Glucose 144 mg/dL (83-110); Potassium 4.7 mmol/L (3.5-5.1); Protein, Total 6.7 g/dL (5.8-8.1); Sodium 131 mmol/L (136-145)
[2022-12-01 17:12] LABS: Bilirubin Negative (Negative); Blood, Urine Negative (Negative); Clarity Clear (Clear); Glucose, Urine (Dipstick) Normal (Negative); Ketone, Urine Negative (Negative); Leukocyte Negative Leu/uL (Negative); Nitrite Negative (Negative); Protein, Urine (Dipstick) Negative (Neg-Trace); Specific Gravity, Urine 1.013 (1.002-1.036); Urobilinogen Normal mg/dL (Less than 2); pH, Urine 7.5 (5.0-9.0)
== END 2022-12-01 17:45 | disposition home or self-care (01) ==
LOC: ERS 14:46
DX: M54.2 Cervicalgia (principal); I10 Essential (primary) hypertension; Z79.899 Other long term (current) drug therapy
CPT/HCPCS: 36415; 70450; 72125; 80053; 81003; 84484; 85025

== ENCOUNTER 2023-04-15 23:16 | Emergency (ER) | payer MEDICARE, BC ==
[2023-04-15] MEDS ORDERED: Ketorolac Tromethamine 30 MG/ML VIAL ONE (23:42)
[2023-04-15 23:50] LABS: #Eosinphils 0.3 thou/uL (0.0-0.7); #Monocytes 0.5 thou/uL (0.11-0.59); #Neutrophils 3.7 thou/uL (1.40-6.50); %Basophils 0.5 % (0.0-1.0); %Eosinophils 4.2 % (0.0-10.0); %Lymphocytes 27.9 % (21.0-51.0); %Monocytes 8.1 % (0.0-10.0); %Neutrophils 58.8 % (42.0-75.0); Hematocrit 44.4 % (42.0-52.0); Hemoglobin 15.5 g/dL (14.0-18.0); Mean Corpuscular HGB CONC 34.9 g/dL (32.0-36.0); Mean Corpuscular Hemoglobin 33.5 pg (27.0-31.0); Mean Corpuscular Volume 96.1 fl (78.0-98.0); Mean Platelet Volume 9.3 fL (7.4-10.4); Platelet Count 188 10x3/uL (130-400); RBC Distribution Width 13.2 % (11.5-14.5); Red Blood Cell (RBC) Count 4.62 mill/uL (4.70-6.10); White Blood Cell (WBC) Count 6.2 10x3/uL (4.8-10.8)
[2023-04-16 00:11] LABS: ALT (SGPT) 24 U/L (8-55); AST (SGOT) 25 U/L (5-34); Albumin 3.9 g/dL (3.4-4.8); Alkaline Phosphatase 73 U/L (40-110); Anion Gap 16 mmol/L (10-20); BUN (Urea Nitrogen) 20 mg/dL (8.4-25.7); Bilirubin, Total 0.6 mg/dL (0.2-1.2); Calc. Creatinine Clearance 0 mL/min (70-130); Calcium 9.3 mg/dL (7.8-10.44); Carbon Dioxide 23 mmol/L (23-31); Chloride 103 mmol/L (98-107); Estimated GFR 96; Glucose 161 mg/dL (83-110); Protein, Total 6.9 g/dL (5.8-8.1); Sodium 138 mmol/L (136-145)
[2023-04-16] MEDS ORDERED: Morphine 2 MG/ML VIAL ONE (02:46)
[2023-04-16] MEDS ORDERED: Acetaminophen 325 MG/10.15 ML UDCUP ONE (02:51)
[2023-04-16] MEDS ORDERED: fentaNYL 50 mcg/mL 1 mL Vial ONE (04:34)
== END 2023-04-16 05:14 ==
LOC: ERS 23:16
DX: S42.351A Displaced comminuted fracture of shaft of humerus, right arm, initial encounter for closed fracture (principal); E11.9 Type 2 diabetes mellitus without complications; I10 Essential (primary) hypertension; W18.30XA Fall on same level, unspecified, initial encounter; Z79.82 Long term (current) use of aspirin
CPT/HCPCS: 70450; 71045; 72125; 73030; 80053; 85025; J3010; 96374; 96375; J1885; J2272